=== PATIENT | female | born 1995 | race Caucasian/White ===

== ENCOUNTER → 2017-10-09 00:05 | Observation (INO) ==
[2017-10-08 21:47] LABS: Bilirubin,Urine Moderate (Negative); Blood,Urine Negative (Negative); Clarity,Urine Turbid (Clear); Color,Urine Dark Yellow (Yellow); Glucose,Urine (UA) Normal (Normal); Ketones,Urine 40 mg/dL (Negative); Leukocyte Esterase,Urine Large (Negative); Nitrite,Urine Negative (Negative); PH,Urine 6.5 pH Units (5.0-8.0); Protein,Urine 30 mg/dL (Neg-Trace); Specific Gravity,Urine 1.024 (1.010-1.025)
[2017-10-08 21:50] LABS: Bacteria,Urine Many per hpf (None-Few); Hyaline Casts,Urine Moderate per lpf (None-Few); Squamous Epithelial Cell,Urine Many per lpf (None-Few); WBC,Urine 30-50 per hpf (0-3)
[2017-10-08 21:56] LABS: Amphetamine Screen,Urine Negative ng/mL (Cutoff=1000); Barbiturate Screen,Urine Negative ng/mL (Cutoff=200); Benzodiazepines Screen,Urine Negative ng/mL (Cutoff=200); Cannabinoid Screen,Urine Negative ng/mL (Cutoff = 50); Cocaine Screen,Urine Negative ng/mL (Cutoff= 300); Opiate Screen,Urine Negative ng/mL (Cutoff=300); Phencyclidine Screen,Urine Negative ng/mL (Cutoff=25)
--- NOTE | 2017-10-08 22:35 | OB/GYN Progress Note ---
Date of Encounter: 10/08/17 Time of Encounter: 22:20 - Assessment and Plan (1) 30 weeks gestation of Current Visit: Yes Status: Acute admitted for observation (2) contractions Current Visit: Yes Status: Acute Iv fluids Discussed patient with Dr. Goodman with give terbutaline (3) Dehydration Current Visit: Yes Status: Acute Iv fluids Subjective - Subjective Principal diagnosis: dizziness, headache and abdominal pain Interval history: Patient is a 22 y/o at 30w3d presents to labor and delivery with complaints of headache, dizziness and abdominal cramping. Patient denies any urinary symptoms, nausea or vomiting. Denies LOF or VB. Patient reports +FM. Patient states she is very stressed at works and feels that could be contributing to her problems. Patient smokes 1ppd and last smoked on her way to the hospital. Patient reports she mostly drinks pop and has not had much water today. Patient reports BPs have been elevated in office in past. Antepartum ROS: loss of fluid, movement normal, no vaginal bleeding Objective - Vital Signs Vital Signs: Intake and Output 10/08/17 10/08/17 10/08/17 07:59 15:59 23:59 Other: Weight 82.3 kg Patient Weight 10/08/17 23:59 Weight 82.3 kg - Exam FHR: auscultation normal FHR comments: 135 bpm moderate variability Abdomen: Present: normal appearance, soft - Labs Labs: Abnormal lab results Urine Clarity Turbid (Clear) A 10/08/17 21:30 Urine Protein 30 mg/dL (Neg-Trace) H 10/08/17 21:30 Urine Ketones 40 mg/dL (Negative) H 10/08/17 21:30 Urine Bilirubin Moderate (Negative) H 10/08/17 21:30 Urine Urobilinogen 4.0 mg/dL (Normal) H 10/08/17 21:30 Ur Leukocyte Esterase Large (Negative) H 10/08/17 21:30 Urine Microscopic RBC 3-5 per hpf (0-3) H 10/08/17 21:30 Urine Microscopic WBC 30-50 per hpf (0-3) H 10/08/17 21:30 Ur Squamous Epith Cells Many per lpf (None-Few) H 10/08/17 21:30 Urine Bacteria Many per hpf (None-Few) H 10/08/17 21:30 Hyaline Casts Moderate per lpf (None-Few) H 10/08/17 21:30 Ur Culture Indicated? NO. (NO) A 10/08/17 21:30
[2017-10-08 22:40] LABS: Basophils % 0.2 %; Eosinophils # 0.1 K/mcL (0.0-0.6); Eosinophils % 0.6 %; Hematocrit 37.5 % (35.3-44.9); Hemoglobin 13.5 g/dL (11.5-15.4); Immature Granulocytes % 0.5 % (0-4); Lymphocytes # 2.2 K/mcL (0.6-4.6); Lymphocytes % 20.1 %; Mean Corpuscular Hemoglobin 31.5 pg (28.0-33.3); Mean Corpuscular Volume 87.4 fL (83.0-100.0); Mean Platelet Volume 11.7 fL (9.4-12.4); Monocytes # 0.5 K/mcL (0.0-1.3); Neutrophils # 7.9 K/mcL (1.6-8.9); Platelet Count 177 K/mcL (140-400); Red Blood Count 4.29 M/mcL (3.82-4.97); Red Cell Distribution Width 13.5 % (11.5-14.5); Segmented Neutrophils % 73.6 %
[2017-10-08 22:58] LABS: Alanine Aminotransferase 48 Units/L (7-52); Aspartate Amino Transferase 34 Units/L (13-39); BUN/Creatinine Ratio 13 (6-26); Blood Urea Nitrogen 6 mg/dL (6-20); Lactate Dehydrogenase 112 Units/L (140-271); Uric Acid 4.8 mg/dL (2.3-7.6); eGFR For Non-African Americans > 60 (> 60)
--- NOTE | 2017-10-08 23:53 | Discharge Summary ---
Date of Encounter: 10/08/17 Time of Encounter: 23:52 - Discharge Diagnosis (1) 30 weeks gestation of Priority: Primary Status: Acute (2) contractions Priority: Secondary Status: Acute Comments: Terbutaline sq x1 (3) Dehydration Priority: Secondary Status: Acute Comments: 1000cc IV bolus (4) UTI in Priority: Primary Status: Acute Comments: Will start macrobid Qualifiers: Trimester: third trimester Qualified Code(s): O23.43 - Unspecified infection of urinary tract in , third trimester - Discharge Medications Prescriptions: Nitrofurantoin (BID) [Macrobid] 100 mg PO BID 7 Days #14 capsule Home Medications: Nitrofurantoin (BID) [Macrobid] 100 mg PO BID 7 Days #14 capsule 10/08/17 [Rx] Vit/Iron Fumarate/FA [ Tablet] 1 each PO DAILY 10/08/17 [ History] Allergies/Adverse Reactions: 3 Allergy/AdvReac Type Severity Reaction Status Date / Time Cefadroxil [From [facility]] Allergy Hives Verified 10/08/17 21:30 Data Procedures and tests throughout hospitalization: Laboratory Tests 10/08/17 10/08/17 10/08/17 21:30 21:34 22:09 WBC 10.7 RBC 4.29 Hgb 13.5 Hct 37.5 MCV 87.4 MCH 31.5 MCHC 36.0 H RDW 13.5 Plt Count 177 MPV 11.7 Immature Gran % 0.5 Seg Neutrophils % 73.6 Lymphocytes % 20.1 Monocytes % 5.0 Eosinophils % 0.6 Basophils % 0.2 Neutrophils # 7.9 Lymphocytes # 2.2 Monocytes # 0.5 Eosinophils # 0.1 Basophils # 0.0 BUN Creatinine Est GFR ( Amer) Est GFR (Non-Af Amer) BUN/Creatinine Ratio Uric Acid AST ALT Lactate Dehydrogenase Urine Color Dark Yellow Urine Clarity Turbid A Urine pH 6.5 Ur Specific Grant 1.024 Urine Protein 30 H Urine Glucose (UA) Normal Urine Ketones 40 H Urine Blood Negative Urine Nitrite Negative Urine Bilirubin Moderate H Urine Urobilinogen 4.0 H Ur Leukocyte Esterase Large H Urine Microscopic RBC 3-5 H Urine Microscopic WBC 30-50 H Ur Squamous Epith Cells Many H Other Crystals Present Urine Bacteria Many H Hyaline Casts Moderate H Ur Culture Indicated? NO. A Urine Opiates Screen Negative Ur Barbiturates Screen Negative Ur Phencyclidine Scrn Negative Ur Amphetamines Screen Negative U Benzodiazepines Scrn Negative Urine Cocaine Screen Negative U Marijuana (THC) Screen Negative Ur Drug Screen Interp See Below 10/08/17 22:09 WBC RBC Hgb Hct MCV MCH MCHC RDW Plt Count MPV Immature Gran % Seg Neutrophils % Lymphocytes % Monocytes % Eosinophils % Basophils % Neutrophils # Lymphocytes # Monocytes # Eosinophils # Basophils # BUN 6 Creatinine 0.47 L Est GFR ( Amer) > 60 Est GFR (Non-Af Amer) > 60 BUN/Creatinine Ratio 13 Uric Acid 4.8 AST 34 ALT 48 Lactate Dehydrogenase 112 L Urine Color Urine Clarity Urine pH Ur Specific [place] Urine Protein Urine Glucose (UA) Urine Ketones Urine Blood Urine Nitrite Urine Bilirubin Urine Urobilinogen Ur Leukocyte Esterase Urine Microscopic RBC Urine Microscopic WBC Ur Squamous Epith Cells Other Crystals Urine Bacteria Hyaline Casts Ur Culture Indicated? Urine Opiates Screen Ur Barbiturates Screen Ur Phencyclidine Scrn Ur Amphetamines Screen U Benzodiazepines Scrn Urine Cocaine Screen U Marijuana (THC) Screen Ur Drug Screen Interp Labs on day of discharge: Labs from last 24 hours 10/08/17 10/08/17 10/08/17 22:09 22:09 21:34 WBC 10.7 RBC 4.29 Hgb 13.5 Hct 37.5 MCV 87.4 MCH 31.5 MCHC 36.0 H RDW 13.5 Plt Count 177 MPV 11.7 Immature Gran % 0.5 Seg Neutrophils % 73.6 Lymphocytes % 20.1 Monocytes % 5.0 Eosinophils % 0.6 Basophils % 0.2 Neutrophils # 7.9 Lymphocytes # 2.2 Monocytes # 0.5 Eosinophils # 0.1 Basophils # 0.0 BUN 6 Creatinine 0.47 L Est GFR ( Amer) > 60 Est GFR (Non-Af Amer) > 60 BUN/Creatinine Ratio 13 Uric Acid 4.8 AST 34 ALT 48 Lactate Dehydrogenase 112 L Urine Color Urine Clarity Urine pH Ur Specific [place] Urine Protein Urine Glucose (UA) Urine Ketones Urine Blood Urine Nitrite Urine Bilirubin Urine Urobilinogen Ur Leukocyte Esterase Urine Microscopic RBC Urine Microscopic WBC Ur Squamous Epith Cells Other Crystals Urine Bacteria Hyaline Casts Ur Culture Indicated? Urine Opiates Screen Negative Ur Barbiturates Screen Negative Ur Phencyclidine Scrn Negative Ur Amphetamines Screen Negative U Benzodiazepines Scrn Negative Urine Cocaine Screen Negative U Marijuana (THC) Screen Negative Ur Drug Screen Interp See Below 10/08/17 21:30 WBC RBC Hgb Hct MCV MCH MCHC RDW Plt Count MPV Immature Gran % Seg Neutrophils % Lymphocytes % Monocytes % Eosinophils % Basophils % Neutrophils # Lymphocytes # Monocytes # Eosinophils # Basophils # BUN Creatinine Est GFR ( Amer) Est GFR (Non-Af Amer) BUN/Creatinine Ratio Uric Acid AST ALT Lactate Dehydrogenase Urine Color Dark Yellow Urine Clarity Turbid A Urine pH 6.5 Ur Specific Grant 1.024 Urine Protein 30 H Urine Glucose (UA) Normal Urine Ketones 40 H Urine Blood Negative Urine Nitrite Negative Urine Bilirubin Moderate H Urine Urobilinogen 4.0 H Ur Leukocyte Esterase Large H Urine Microscopic RBC 3-5 H Urine Microscopic WBC 30-50 H Ur Squamous Epith Cells Many H Other Crystals Present Urine Bacteria Many H Hyaline Casts Moderate H Ur Culture Indicated? NO. 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 Patient denies any abdominal pain and reports headache is gone. Patient reports +FM. Time Attestation: Total time spent providing and/or coordinating discharge services: Time Spent: Less than 30 minutes - VTE Reasons for not Prescribing Prophylaxis: Treatment not Indicated - Low risk for VTE
[~2017-10-09 00:05] MED LIST: Ringers Solution, Lactated 1,000 ML IVC SCH; Terbutaline 1 MG/ML VIAL SQ ONE
== END | disposition home or self-care (01) ==
LOC: 1NENULAB
PROVIDERS: ADMIT Advanced Practice Midwife; ATTEND Advanced Practice Midwife

== ENCOUNTER → 2017-11-23 18:10 | Observation (INO) ==
[2017-11-23 16:44] LABS: Basophils % 0.2 %; Eosinophils % 0.3 %; Hemoglobin 13.8 g/dL (11.5-15.4); Immature Granulocytes % 0.4 % (0-4); Lymphocytes % 16.4 %; Mean Corpuscular HGB Conc 34.5 g/dL (31.6-35.5); Mean Corpuscular Hemoglobin 30.4 pg (28.0-33.3); Mean Corpuscular Volume 88.1 fL (83.0-100.0); Mean Platelet Volume 13.2 fL (9.4-12.4); Monocytes # 0.4 K/mcL (0.0-1.3); Monocytes % 3.3 %; Neutrophils # 9.8 K/mcL (1.6-8.9); Platelet Count 138 K/mcL (140-400); Red Blood Count 4.54 M/mcL (3.82-4.97); Red Cell Distribution Width 13.3 % (11.5-14.5); Segmented Neutrophils % 79.4 %
[2017-11-23 17:03] LABS: Alanine Aminotransferase 8 Units/L (7-52); Aspartate Amino Transferase 11 Units/L (13-39); BUN/Creatinine Ratio 12 (6-26); Blood Urea Nitrogen 7 mg/dL (6-20); Lactate Dehydrogenase 140 Units/L (140-271); Uric Acid 6.1 mg/dL (2.3-7.6); eGFR For Non-African Americans > 60 (> 60)
[2017-11-23 17:16] LABS: Amphetamine Screen,Urine Negative ng/mL (Cutoff=1000); Barbiturate Screen,Urine Negative ng/mL (Cutoff=200); Benzodiazepines Screen,Urine Negative ng/mL (Cutoff=200); Cannabinoid Screen,Urine Negative ng/mL (Cutoff = 50); Cocaine Screen,Urine Negative ng/mL (Cutoff= 300); Opiate Screen,Urine Negative ng/mL (Cutoff=300); Phencyclidine Screen,Urine Negative ng/mL (Cutoff=25)
[2017-11-23 17:27] LABS: Protein/Creatinine Ratio,Urine 0.23 mg/mg (0.00-0.20)
--- NOTE | 2017-11-23 17:56 | Discharge Summary ---
Date of Encounter: 11/23/17 Time of Encounter: 17:55 - Discharge Diagnosis (1) 37 weeks gestation of Priority: Primary Status: Acute Comments: Follow up in office as scheduled Labor precautions Discharge home (2) Elevated blood pressure affecting in third trimester, antepartum Priority: Secondary Status: Acute Comments: Preeclampsia signs and symptoms discussed and patient verbalizes understanding of when to come back - Discharge Medications Home Medications: Vit/Iron Fumarate/FA [ Tablet] 1 each PO DAILY 10/08/17 [ History] Allergies/Adverse Reactions: 3 Allergy/AdvReac Type Severity Reaction Status Date / Time Cefadroxil [From [facility]] Allergy Hives Verified 11/23/17 15:48 Data Procedures and tests throughout hospitalization: Laboratory Tests 11/23/17 11/23/17 11/23/17 15:59 15:59 16:38 WBC 12.3 H RBC 4.54 Hgb 13.8 Hct 40.0 MCV 88.1 MCH 30.4 MCHC 34.5 RDW 13.3 Plt Count 138 L MPV 13.2 H Immature Gran % 0.4 Seg Neutrophils % 79.4 Lymphocytes % 16.4 Monocytes % 3.3 Eosinophils % 0.3 Basophils % 0.2 Neutrophils # 9.8 H Lymphocytes # 2.0 Monocytes # 0.4 Eosinophils # 0.0 Basophils # 0.0 BUN 7 Creatinine 0.57 L Est GFR ( Amer) > 60 Est GFR (Non-Af Amer) > 60 BUN/Creatinine Ratio 12 Uric Acid 6.1 AST 11 L ALT 8 Lactate Dehydrogenase 140 Urine Creatinine Protein/Creatinin Ratio Urine Total Protein Urine Opiates Screen Negative Ur Barbiturates Screen Negative Ur Phencyclidine Scrn Negative Ur Amphetamines Screen Negative U Benzodiazepines Scrn Negative Urine Cocaine Screen Negative U Marijuana (THC) Screen Negative Ur Drug Screen Interp See Below 11/23/17 16:38 WBC RBC Hgb Hct MCV MCH MCHC RDW Plt Count MPV Immature Gran % Seg Neutrophils % Lymphocytes % Monocytes % Eosinophils % Basophils % Neutrophils # Lymphocytes # Monocytes # Eosinophils # Basophils # BUN Creatinine Est GFR ( Amer) Est GFR (Non-Af Amer) BUN/Creatinine Ratio Uric Acid AST ALT Lactate Dehydrogenase Urine Creatinine 101 Protein/Creatinin Ratio 0.23 H Urine Total Protein 23 H Urine Opiates Screen Ur Barbiturates Screen Ur Phencyclidine Scrn Ur Amphetamines Screen U Benzodiazepines Scrn Urine Cocaine Screen U Marijuana (THC) Screen Ur Drug Screen Interp Labs on day of discharge: Labs from last 24 hours 11/23/17 11/23/17 11/23/17 16:38 16:38 15:59 WBC RBC Hgb Hct MCV MCH MCHC RDW Plt Count MPV Immature Gran % Seg Neutrophils % Lymphocytes % Monocytes % Eosinophils % Basophils % Neutrophils # Lymphocytes # Monocytes # Eosinophils # Basophils # BUN 7 Creatinine 0.57 L Est GFR ( Amer) > 60 Est GFR (Non-Af Amer) > 60 BUN/Creatinine Ratio 12 Uric Acid 6.1 AST 11 L ALT 8 Lactate Dehydrogenase 140 Urine Creatinine 101 Protein/Creatinin Ratio 0.23 H Urine Total Protein 23 H Urine Opiates Screen Negative Ur Barbiturates Screen Negative Ur Phencyclidine Scrn Negative Ur Amphetamines Screen Negative U Benzodiazepines Scrn Negative Urine Cocaine Screen Negative U Marijuana (THC) Screen Negative Ur Drug Screen Interp See Below 11/23/17 15:59 WBC 12.3 H RBC 4.54 Hgb 13.8 Hct 40.0 MCV 88.1 MCH 30.4 MCHC 34.5 RDW 13.3 Plt Count 138 L MPV 13.2 H Immature Gran % 0.4 Seg Neutrophils % 79.4 Lymphocytes % 16.4 Monocytes % 3.3 Eosinophils % 0.3 Basophils % 0.2 Neutrophils # 9.8 H Lymphocytes # 2.0 Monocytes # 0.4 Eosinophils # 0.0 Basophils # 0.0 BUN Creatinine Est GFR ( Amer) Est GFR (Non-Af Amer) BUN/Creatinine Ratio Uric Acid AST ALT Lactate Dehydrogenase Urine Creatinine Protein/Creatinin Ratio Urine Total Protein Urine Opiates Screen Ur Barbiturates Screen Ur Phencyclidine Scrn Ur Amphetamines Screen U Benzodiazepines Scrn Urine Cocaine Screen U Marijuana (THC) Screen Ur Drug Screen Interp Date of admission: 11/23/17 15:26 Primary care physician: PCP NONE Discharging clinician: Joleen Galindo Anticipated date of discharge: 11/23/17 - Patient Status Disposition: Home, Self-Care Condition: Good Functional capacity at discharge: independent ambulation Overall status at discharge: patient is progressing back to baseline - Discharge Instructions Follow Up With: NONE,PCP [Primary Care Provider] - Joleen Galindo [Advanced Practice Nurse] - - Diet and Activity Activity: increase activity as tolerated Diet: regular diet 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 She states she had a headache this morning with blurry vision which both have now resolved. PIH labs all negative. Discussed with Dr. Goodman and agreed to send patient home with follow-up next week as scheduled. Time Attestation: Total time spent providing and/or coordinating discharge services: Time Spent: Less than 30 minutes Exam - Constitutional General appearance IM: A&O X 3 - Respiratory Respiratory exam: Present: CTAB - Cardiovascular Cardiovascular exam IM: Present: RRR, +S1, +S2 - GI/Abdominal GI/Abdominal exam IM: normal bowel sounds, no peritoneal signs - Rectal Rectal exam: deferred - Uterine Tone: Firm - Extremities Exam Extremities exam IM: Present: normal capillary refill, normal inspection, radial pulses palpable and symmetrical - Neurological Exam Neurological exam: alert, CN II-XII intact, normal gait, oriented X3, reflexes normal, no focal deficits, strengths equal and symetr throughout - VTE Reasons for not Prescribing Prophylaxis: Treatment not Indicated - Low risk for VTE
== END | disposition home or self-care (01) ==
LOC: 1NENULAB
PROVIDERS: ADMIT Advanced Practice Midwife; ATTEND Advanced Practice Midwife

== ENCOUNTER 2017-11-28 08:37 | Inpatient (IN) ==
[~2017-11-28 08:37] MED LIST changes: +*HR* FentaNYL (PF) 100 MCG/2 ML VIAL ONE; +*HR* Nalbuphine 10 MG/ML AMPUL IVP PRN; +Bupivacaine-MPF 0.25% 10 ML VIAL ONE; +Epidural Premix (fent/bupiv) 110 ML EP ONE; +Famotidine 20 MG/2 ML VIAL IVP PRN; +Lidocaine -MPF 1% 5 ML AMPUL ONE; +Lidocaine 1% 20 ML MDV INFILT PRN; +Metoclopramide 10 MG/2 ML VIAL IVP PRN; +Naloxone 0.4 MG/ML INJ IVP PRN; +Ondansetron 4 MG/2 ML VIAL IVP PRN; +Oxytocin 20 units/ LR 1000 mL 20 UNIT/1,000 ML BAG IVC ONE; -Terbutaline 1 MG/ML VIAL SQ ONE
[2017-11-28 08:39] LABS: Alanine Aminotransferase 9 Units/L (7-52); Aspartate Amino Transferase 13 Units/L (13-39); BUN/Creatinine Ratio 16 (6-26); Blood Urea Nitrogen 11 mg/dL (6-20); Lactate Dehydrogenase 157 Units/L (140-271); Uric Acid 6.7 mg/dL (2.3-7.6); eGFR For Non-African Americans > 60 (> 60)
[2017-11-28] MEDS ORDERED: *HR* FentaNYL (PF) 100 MCG/2 ML VIAL EP ONE (08:44)
[2017-11-28] MEDS ORDERED: EPHEDrine 50 MG/ML VIAL IVP PRN (08:44)
[2017-11-28] MEDS ORDERED: Bupivacaine-MPF 0.25% 10 ML VIAL EP ONE (08:44)
[2017-11-28] MEDS ORDERED: Epidural Premix (fent/bupiv) 110 ML EP SCH (08:45)
--- NOTE | 2017-11-28 08:48 | Anesthesia Evaluation PreOp ---
Date of Encounter: 11/28/17 Time of Encounter: 08:46 - Past History Planned Operation: carole Cardiac History: Denies any Significant Hx Pulmonary History: Denies Any Significant HX MUSIC COORDINATOR History: Denies Any Significant HX Other Medical History: Denies Any Significant HX Anesthesia History: No Prior Anesthetic Complications : Yes () Alcohol Use: none Drug use: none Medications and Allergies Vit/Iron Fumarate/FA [ Tablet] 1 each PO DAILY 10/08/17 [ History] 3 Allergy/AdvReac Type Severity Reaction Status Date / Time Cefadroxil [From [facility]] Allergy Hives Verified 11/23/17 15:48 - Meds/Allergy Pre-op Review Medications Reviewed: Yes Allergies Reviewed: Yes Beta Blockers on Current Med List: No Anesthesia Results - Labs 11/28/17 07:50 Anesthesia Exam O2 Sat Height 1.57 m Weight 81.6 kg bp 172/87 Height: 62 Weight: 81 - HEENT Pupil (Motor): Pupils equal Mallampati: II Teeth: Normal Oral Opening: Greater than 3 - MUSIC COORDINATOR LOC: Oriented MUSIC COORDINATOR Motor: Normal RUE, Normal LUE, Normal RLE, Normal LLE, Normal Face MUSIC COORDINATOR Sensory: Normal: RUE, LUE, RLE, LLE, Face - Cardiac Rhythm: Regular Murmur: None JVD: No Carotid Bruit: No - Pulmonary Breath Sounds: bilateral Clear Respiratory Effort: Symmetrical Anesthesia Assess/Plan ASA Score: 2 Modified [place] Scale for Level of Consciousness: Cooperative, oriented, and tranquil Anesthetic Plan: Regional Monitoring Plan: Standard Monitors
--- NOTE | 2017-11-28 08:49 | Anesthesia Procedures ---
Date of Encounter: 11/28/17 Time of Encounter: 08:48 Procedures: Anesthesia - Epidural/Spinal Patient ID/Chart reviewed: Yes Patient examined: Yes OB Eval: : 1 OB Eval: Hx Para: 0 OB Eval: Dilated at (cm): 6 OB Eval: Contractions: Non-stressed pattern Consent Obtained: Yes Supplemental Oxygen: None/Room Air Site Prep: Aseptic Technique Patient position: upright Local Anesthetic: Lidocaine 1% Amount of Local Anesthetic used: 3 Touhy Needle Gauge: 18 Touhy Needle Depth (cm): 5 Catheter Depth at Skin (cm): 12 Test Dose (1.5% Lido + Epi): Volume given (mls): 3 Test Dose Result: Negative Loading Dose: 0.25% Marcaine (mls): 5 Loading Dose: Fentanyl (mcg): 100 Loading Dose Administered: Thru Touhy Needle Infusion Med: 0.125% Bupivacaine w/ 2 mcg/ml Fentanyl Infusion Rate (mls/hr): [address]: Tegaderm Interspace Used: L3-L4 Loss of Resistance (RAMY): Yes Blood: No CSF: No Paresthesia: No Spinal Needle Gauge: 24
[2017-11-28 09:04] LABS: Basophils % 0.3 %; Eosinophils # 0.1 K/mcL (0.0-0.6); Eosinophils % 0.4 %; Hematocrit 42.5 % (35.3-44.9); Hemoglobin 14.8 g/dL (11.5-15.4); Immature Granulocytes % 0.6 % (0-4); Lymphocytes % 19.5 %; Mean Corpuscular HGB Conc 34.8 g/dL (31.6-35.5); Mean Platelet Volume 12.7 fL (9.4-12.4); Monocytes # 0.5 K/mcL (0.0-1.3); Monocytes % 3.3 %; Neutrophils # 11.8 K/mcL (1.6-8.9); Platelet Count 169 K/mcL (140-400); Red Blood Count 4.94 M/mcL (3.82-4.97); Segmented Neutrophils % 75.9 %
[2017-11-28 09:41] LABS: Amphetamine Screen,Urine Negative ng/mL (Cutoff=1000); Barbiturate Screen,Urine Negative ng/mL (Cutoff=200)
[2017-11-28 09:43] LABS: Benzodiazepines Screen,Urine Negative ng/mL (Cutoff=300); Cannabinoid Screen,Urine Negative ng/mL (Cutoff = 50); Cocaine Screen,Urine Negative ng/mL (Cutoff= 300); Opiate Screen,Urine Negative ng/mL (Cutoff=300); Phencyclidine Screen,Urine Negative ng/mL (Cutoff=25)
--- NOTE | 2017-11-28 10:00 | OB/GYN History & Physical ---
Date of Encounter: 11/28/17 Time of Encounter: 09:50 Assessment and Plan (1) Rupture of membranes with clear amniotic fluid Current visit: Yes Status: Acute Admit for expected management. (2) 37 weeks gestation of Current visit: No Status: Acute Resting comfortably with epidural. White plaques adjacent to clitoris noted during sena placement. HSV swab pending. Anticipate pending HSV result. Of note the white plaques were easily removed with the swab but the pt does report tenderness in this area. History of Present Illness Chief complaint: ROM HPI: Ms. Ocampo is a 22 year old female that presented at 37w5d after ROM of clear fluid at 0530 with contractions. Denies VB. Reports good FM. EFW at 36w was 6lbs (57%). O Positive GBS Negative Rubella immune Varicella immune Syphillis, HIV, Hep B Nonreactive GC/CT negative 1hr GTT 170 3hr GTT 185-125-107 Past Med Surg Social Fam HX - Past Medical History Medical history: no medical history Psychiatric history: anxiety - Past Surgical History Surgical History: no surgical history - Social History Smoking Status: Never smoker Smokeless Tobacco Status: No Alcohol use: none Drug use: none - Family History Mother Family Member Ethnicity: Non- Living Status: Still Living Hx Family Cardiac Disorders: No Hx Family Respiratory Disorders: No Hx Family Cancer: No Hx Family GI Disorders: No Hx Family Genitourinary Disorders: No Hx Family Endocrine Disorder: No Hx Family Musculoskeletal Disorders: No Hx Family Neuromuscular Disorders: No Hx Family Neurologic Disorders: No Hx Family HEENT Disorders: No Hx Family Autoimmune Disorders: No Hx Family Reproductive Disorders: No Hx Family Psychosocial Disorders: No Hx Family Medical Disorders: No Obstetrical History - Pregnancies : 1 Para: 0 Term: 0 : 0 Ab's: 0 Livin Medications and Allergies Vit/Iron Fumarate/FA [ Tablet] 1 each PO DAILY 10/08/17 [ History] 3 Allergy/AdvReac Type Severity Reaction Status Date / Time Cefadroxil [From [facility] [place]] Allergy Hives Verified 11/23/17 15:48 Review of System OB All systems PM: reviewed and no additional remarkable complaints except as stated Exam - Vital Signs Vital signs: Initial Vital Signs Temp Pulse Resp BP Pulse Ox 970.2 F H 76 22 145/64 99 11/28/17 09:06 11/28/17 09:06 11/28/17 09:06 11/28/17 09:06 11/28/17 09:06 - Constitutional Constitutional: well developed, well nourished, no acute distress, average body habitus - Lungs Respiratory exam: CTAB - Cardiovascular Cardiovascular exam: RRR, +S1, +S2 - Abdomen Abdomen: Present: bowel sounds normal, gravid, non tender - Extremities Extremities exam: normal inspection, pedal edema (1+) Deep Tendon Reflex Grade: 2+ Normal - Cervix Dilation: 6 Effacement: 100 Station: -2 Results Result Diagrams: 11/28/17 07:50 11/28/17 07:50 Abnormal lab results WBC 15.5 K/mcL (4.3-11.1) H 11/28/17 07:50 MPV 12.7 fL (9.4-12.4) H 11/28/17 07:50 Neutrophils # 11.8 K/mcL (1.6-8.9) H 11/28/17 07:50 All other labs normal. - VTE Reasons for not Prescribing Prophylaxis: Treatment not Indicated - Low risk for VTE
[2017-11-28 11:41] LABS: HSV 1 DNA Not Detected (Not Detect); HSV 2 DNA Not Detected (Not Detect)
[2017-11-28 12:00] LABS: Protein/Creatinine Ratio,Urine 0.24 mg/mg (0.00-0.20)
--- NOTE | 2017-11-28 13:07 | OB/GYN Procedure Note ---
Delivery - Delivery Date: 11/28/17 Provider: Patria Encarnacion Intrapartum events: none Delivery induction: none Delivery monitor: external FHT, external uterine Anesthesia: epidural Quantitated Blood Loss: 150 - (s) Infant A Delivery Date: 11/28/17 Infant Delivery Time: 12:11 Presentation: vertex Position: CANDELARIO Route of delivery: Gender: Male Viability: Viable Pounds: 5 Ounces: 8 Weight Gram: 2.505 kg at 1 minute: 8 at 5 mins: 9 Shoulder Dystocia: not encountered Specimens collected: cord blood Cord: nuchal cord, 3 umbilical vessels, nuchal reduced - Repair Episiotomy: none Laceration Description: Perineal - 2nd Degree, Labial - Complications Delivery complications: none Delivery comments: Pt presented in active labor following SROM and progressed normally to . A loose nuchal was easily reduced following delivery of the head. After pulsations ceased the cord was clamped and cut and the placenta delivered spontaneous and intact. Baby boy "Michael" weighing 5lbs 8 oz had apgars 8 at one minute and 9 at five minutes. Bilateral labial lacerations were repaired with 4- 0 monocryl and a second degree perineal laceration was repaired with 2-0 monocryl. EBL 150ml. Mother and baby stable in kangaroo care following procedure. - Disposition Mom disposition: stable in LDR disposition: stable in LDR
[2017-11-28] MEDS ORDERED: Oxytocin 20 units/ LR 1000 mL 20 UNIT/1,000 ML BAG IVC ONE (13:52)
[2017-11-28] MEDS ORDERED: NIFEdipine 10 MG CAPSULE PO ONE (14:03)
[2017-11-28] MEDS ORDERED: Acetaminophen 325 MG TABLET PO PRN (14:59)
[2017-11-28] MEDS ORDERED: Oxytocin 20 units/ LR 1000 mL 20 UNIT/1,000 ML BAG IVC SCH (14:59)
[2017-11-28] MEDS ORDERED: Measles/Mumps/Rubella Vacc 0.5 ML VIAL SQ PRN (14:59)
[2017-11-28] MEDS ORDERED: Benzocaine/Menthol 56 GM AEROSOL SPRAY TP PRN (14:59)
[2017-11-28] MEDS ORDERED: Lanolin 28 GM TUBE TP PRN (14:59)
--- NOTE | 2017-11-28 15:09 | OB/GYN Procedure Note ---
Delivery - Delivery Date: 11/28/17 Provider: Patria Encarnacion Intrapartum events: none Delivery induction: none Delivery monitor: external FHT, external uterine Anesthesia: epidural Quantitated Blood Loss: 250 - (s) Infant A Delivery Date: 11/28/17 Infant Delivery Time: 12:11 Presentation: vertex Position: CANDELARIO Route of delivery: Gender: Male Viability: Viable Pounds: 5 Ounces: 8 Weight Gram: 2.505 kg at 1 minute: 8 at 5 mins: 9 Shoulder Dystocia: not encountered Specimens collected: cord blood Placenta: spontaneous, uterine exploration (small amount membranes removed manually) Cord: nuchal cord, 3 umbilical vessels, nuchal reduced - Repair Episiotomy: none Laceration Description: Perineal - 2nd Degree, Labial - Complications Delivery complications: none (atony noted with steady lochia following delivery of placenta, methergine given.), uterine atony Delivery comments: Pt presented in active labor and progressed well to of viable male "Tonio " weighing 7lbs with apgars 8 at one minute and 9 at five minutes. After pulsations ceased the cord was clamped and cut and the placenta delivered spontaneous and intact. Uterine atony with constant flow of lochia noted. Fundal massage initiated. Moderate flow of lochia and poor uterine tone continued. Methergine given after BP assessment. Uterine exploration reveals some trailing membrane which is removed. No placental fragments. Placenta evaluated and found to be intact. Fundus then firm. A first degree laceration was repaired with 2-0 monocryl. EBL 250ml. Mother and baby stable in kangaroo care following procedure. Dr. Quinones and I were both gowned and gloved and completed this procedure together. - Disposition Mom disposition: stable in LDR disposition: stable in LDR
[2017-11-29 06:23] LABS: Basophils % 0.3 %; Eosinophils % 0.3 %; Hematocrit 36.9 % (35.3-44.9); Immature Granulocytes % 0.4 % (0-4); Lymphocytes # 3.7 K/mcL (0.6-4.6); Lymphocytes % 27.5 %; Mean Corpuscular HGB Conc 33.9 g/dL (31.6-35.5); Mean Corpuscular Volume 88.7 fL (83.0-100.0); Mean Platelet Volume 12.6 fL (9.4-12.4); Monocytes # 0.6 K/mcL (0.0-1.3); Monocytes % 4.4 %; Platelet Count 129 K/mcL (140-400); Red Blood Count 4.16 M/mcL (3.82-4.97); Red Cell Distribution Width 13.8 % (11.5-14.5); Segmented Neutrophils % 67.1 %
[2017-11-29 06:29] LABS: Hemoglobin 12.5 g/dL (11.5-15.4); Neutrophils # 9.1 K/mcL (1.6-8.9)
[2017-11-29 06:47] LABS: Platelet Estimate Normal (Normal); Reactive Lymphocytes Present (Not Present)
--- NOTE | 2017-11-29 08:59 | Discharge Summary ---
Date of Encounter: 11/29/17 Time of Encounter: 08:57 - Discharge Diagnosis (1) Vaginal delivery Priority: Primary Status: Acute Comments: S/P vaginal delivery day 1 Pain is well controlled lochia is light and without clots Tolerating regular diet. Voiding without difficulty and passing flatus VSS Bottle feeding Discharge home today - Discharge Medications Prescriptions: Docusate [Colace] 100 mg PO BID PRN #30 capsule PRN Reason: Constipation Ferrous Sulfate 325 mg PO DAILY #90 tablet Ibuprofen [Ibu] 600 mg PO Q6H PRN #30 tablet PRN Reason: cramping Home Medications: Acetaminophen [Tylenol] 650 mg PO Q6HR PRN tablet 11/29/17 [Rx] Benzocaine/Menthol Tr[place] [Dermoplast [place]] 1 appl TP QID PRN aerosol 11/29/17 [Rx] Docusate [Colace] 100 mg PO BID PRN #30 capsule 11/29/17 [Rx] Ferrous Sulfate 325 mg PO DAILY #90 tablet 11/29/17 [Rx] Ibuprofen [Ibu] 600 mg PO Q6H PRN #30 tablet 11/29/17 [Rx] Vit/FA 1 each PO DAILY tablet 11/29/17 [Rx] Allergies/Adverse Reactions: 3 Allergy/AdvReac Type Severity Reaction Status Date / Time Cefadroxil [From [facility] [place] Allergy Hives Verified 11/23/17 15:48 Data Procedures and tests throughout hospitalization: Laboratory Tests 11/28/17 11/28/17 11/28/17 07:50 07:50 07:50 WBC 15.5 H RBC 4.94 Hgb 14.8 Hct 42.5 MCV 86.0 MCH 30.0 MCHC 34.8 RDW 14.0 Plt Count 169 MPV 12.7 H Immature Gran % 0.6 Seg Neutrophils % 75.9 Lymphocytes % 19.5 Monocytes % 3.3 Eosinophils % 0.4 Basophils % 0.3 Neutrophils # 11.8 H Lymphocytes # 3.0 Monocytes # 0.5 Eosinophils # 0.1 Basophils # 0.0 Reactive Lymphocytes Platelet Estimate BUN 11 Creatinine 0.69 Est GFR ( Amer) > 60 Est GFR (Non-Af Amer) > 60 BUN/Creatinine Ratio 16 Uric Acid 6.7 AST 13 ALT 9 Lactate Dehydrogenase 157 Urine Creatinine Protein/Creatinin Ratio Urine Total Protein Urine Opiates Screen Negative Ur Barbiturates Screen Negative Ur Phencyclidine Scrn Negative Ur Amphetamines Screen Negative U Benzodiazepines Scrn Negative Urine Cocaine Screen Negative U Marijuana (THC) Screen Negative Ur Drug Screen Interp See Below Hep Bs Antigen Herpes Simplex Source HSV I HSV II 11/28/17 11/28/17 11/28/17 07:50 07:50 10:29 WBC RBC Hgb Hct MCV MCH MCHC RDW Plt Count MPV Immature Gran % Seg Neutrophils % Lymphocytes % Monocytes % Eosinophils % Basophils % Neutrophils # Lymphocytes # Monocytes # Eosinophils # Basophils # Reactive Lymphocytes Platelet Estimate BUN Creatinine Est GFR ( Amer) Est GFR (Non-Af Amer) BUN/Creatinine Ratio Uric Acid AST ALT Lactate Dehydrogenase Urine Creatinine 92 Protein/Creatinin Ratio 0.24 H Urine Total Protein 22 H Urine Opiates Screen Ur Barbiturates Screen Ur Phencyclidine Scrn Ur Amphetamines Screen U Benzodiazepines Scrn Urine Cocaine Screen U Marijuana (THC) Screen Ur Drug Screen Interp Hep Bs Antigen Nonreactive Herpes Simplex Source vulva HSV I Not Detected HSV II Not Detected 11/29/17 06:00 WBC 13.5 H RBC 4.16 Hgb 12.5 D Hct 36.9 MCV 88.7 MCH 30.0 MCHC 33.9 RDW 13.8 Plt Count 129 L MPV 12.6 H Immature Gran % 0.4 Seg Neutrophils % 67.1 Lymphocytes % 27.5 Monocytes % 4.4 Eosinophils % 0.3 Basophils % 0.3 Neutrophils # 9.1 H Lymphocytes # 3.7 Monocytes # 0.6 Eosinophils # 0.0 Basophils # 0.0 Reactive Lymphocytes Present A Platelet Estimate Normal BUN Creatinine Est GFR ( Amer) Est GFR (Non-Af Amer) BUN/Creatinine Ratio Uric Acid AST ALT Lactate Dehydrogenase Urine Creatinine Protein/Creatinin Ratio Urine Total Protein Urine Opiates Screen Ur Barbiturates Screen Ur Phencyclidine Scrn Ur Amphetamines Screen U Benzodiazepines Scrn Urine Cocaine Screen U Marijuana (THC) Screen Ur Drug Screen Interp Hep Bs Antigen Herpes Simplex Source HSV I HSV II Labs on day of discharge: Labs from last 24 hours 11/29/17 11/28/17 11/28/17 06:00 10:29 07:50 WBC 13.5 H RBC 4.16 Hgb 12.5 D Hct 36.9 MCV 88.7 MCH 30.0 MCHC 33.9 RDW 13.8 Plt Count 129 L MPV 12.6 H Immature Gran % 0.4 Seg Neutrophils % 67.1 Lymphocytes % 27.5 Monocytes % 4.4 Eosinophils % 0.3 Basophils % 0.3 Neutrophils # 9.1 H Lymphocytes # 3.7 Monocytes # 0.6 Eosinophils # 0.0 Basophils # 0.0 Reactive Lymphocytes Present A Platelet Estimate Normal Urine Creatinine 92 Protein/Creatinin Ratio 0.24 H Urine Total Protein 22 H Urine Opiates Screen Ur Barbiturates Screen Ur Phencyclidine Scrn Ur Amphetamines Screen U Benzodiazepines Scrn Urine Cocaine Screen U Marijuana (THC) Screen Hep Bs Antigen Herpes Simplex Source vulva HSV I Not Detected HSV II Not Detected 11/28/17 11/28/17 11/28/17 07:50 07:50 07:50 WBC 15.5 H RBC 4.94 Hgb 14.8 Hct 42.5 MCV 86.0 MCH 30.0 MCHC 34.8 RDW 14.0 Plt Count 169 MPV 12.7 H Immature Gran % 0.6 Seg Neutrophils % 75.9 Lymphocytes % 19.5 Monocytes % 3.3 Eosinophils % 0.4 Basophils % 0.3 Neutrophils # 11.8 H Lymphocytes # 3.0 Monocytes # 0.5 Eosinophils # 0.1 Basophils # 0.0 Reactive Lymphocytes Platelet Estimate Urine Creatinine Protein/Creatinin Ratio Urine Total Protein Urine Opiates Screen Negative Ur Barbiturates Screen Negative Ur Phencyclidine Scrn Negative Ur Amphetamines Screen Negative U Benzodiazepines Scrn Negative Urine Cocaine Screen Negative U Marijuana (THC) Screen Negative Hep Bs Antigen Nonreactive Herpes Simplex Source HSV I HSV II Date of admission: 11/28/17 08:37 Primary care physician: PCP NONE Consults: 11/28/17 14:59 Consult to Move Coordinator [CONS] Routine Comment: Vaginal delivery, consult needed Discharging clinician: Joleen Jean Anticipated date of discharge: 11/29/17 - Patient Status Disposition: Home, Self-Care Condition: Good Functional capacity at discharge: independent ambulation Overall status at discharge: patient is progressing back to baseline - Discharge Instructions Follow Up With: NONE,PCP [Primary Care Provider] - Patria Encarnacion CNM [Non-Partnered Physician] - - Diet and Activity Activity: increase activity as tolerated Diet: regular diet Hospital Course Reason for admission: rupture of membranes, IUP at term Delivery: Episiotomy: none Laceration: 2nd degree, other Other procedures: none complications: none Discharge diagnosis: IUP at term delivered baby: male Time Attestation: Total time spent providing and/or coordinating discharge services: Time Spent: Less than 30 minutes Exam - Constitutional Vitals: Temp Pulse Resp BP Pulse Ox 97.8 F 67 14 128/81 98 11/29/17 03:36 11/29/17 03:36 11/29/17 03:36 11/29/17 03:36 11/29/17 03:36 General appearance IM: cooperative, A&O X 3, pleasant - Respiratory Respiratory exam: Present: CTAB - Cardiovascular Cardiovascular exam IM: Present: RRR, +S1, +S2 - GI/Abdominal GI/Abdominal exam IM: normal bowel sounds, soft - Rectal Rectal exam: deferred - Uterine Tone: Firm Uterus Position: At Umbilicus, Midline - Extremities Exam Extremities exam IM: Present: normal capillary refill, normal inspection, radial pulses palpable and symmetrical - Neurological Exam Neurological exam: alert, oriented X3
[2017-11-29] MEDS ORDERED: Prenatal Vit/FA 1 EACH TABLET PO SCH (09:00)
[2017-11-29 09:19] VITALS: BP 129/85
== END 2017-11-29 15:59 | disposition home or self-care (01) | DRG 807 ==
LOC: 1NENULAB → 1NENUOBS 14:59
PROVIDERS: ADMIT Registered Nurse; ATTEND Registered Nurse

== ENCOUNTER 2017-12-30 10:54 | Observation (INO) ==
[2017-12-30] MEDS ORDERED: 0.9 % Sodium Chloride 1,000 ML IVC ONE ×3 (11:26→13:56)
[2017-12-30 11:39] LABS: Bilirubin,Urine Moderate (Negative); Blood,Urine Large (Negative); Clarity,Urine Cloudy (Clear); Color,Urine Dark Yellow (Yellow); Glucose,Urine (UA) Normal (Normal); Ketones,Urine Trace mg/dL (Negative); Leukocyte Esterase,Urine Moderate (Negative); Nitrite,Urine Negative (Negative); Protein,Urine 100 mg/dL (Neg-Trace); Specific Gravity,Urine 1.026 (1.010-1.025); Urobilinogen,Urine Normal (Normal)
[2017-12-30 11:42] LABS: Bacteria,Urine Many per hpf (None-Few); Squamous Epithelial Cell,Urine Many per lpf (None-Few); WBC,Urine TNTC per hpf (0-3)
[2017-12-30 12:04] LABS: Basophils % 0.3 %; Hematocrit 40.8 % (35.3-44.9); Hemoglobin 14.1 g/dL (11.5-15.4); Immature Granulocytes % 0.4 % (0-4); Lymphocytes # 1.2 K/mcL (0.6-4.6); Lymphocytes % 12.4 %; Mean Corpuscular HGB Conc 34.6 g/dL (31.6-35.5); Mean Corpuscular Hemoglobin 29.7 pg (28.0-33.3); Mean Corpuscular Volume 86.1 fL (83.0-100.0); Mean Platelet Volume 10.6 fL (9.4-12.4); Monocytes # 0.5 K/mcL (0.0-1.3); Monocytes % 5.4 %; Neutrophils # 7.9 K/mcL (1.6-8.9); Platelet Count 159 K/mcL (140-400); Red Blood Count 4.74 M/mcL (3.82-4.97); Red Cell Distribution Width 13.1 % (11.5-14.5); Segmented Neutrophils % 81.5 %
[2017-12-30 12:09] LABS: Amphetamine Screen,Urine Positive ng/mL (Cutoff=1000); Barbiturate Screen,Urine Negative ng/mL (Cutoff=200); Benzodiazepines Screen,Urine Negative ng/mL (Cutoff=200); Cannabinoid Screen,Urine Positive ng/mL (Cutoff = 50); Cocaine Screen,Urine Negative ng/mL (Cutoff= 300); Opiate Screen,Urine Negative ng/mL (Cutoff=300); Phencyclidine Screen,Urine Negative ng/mL (Cutoff=25)
[2017-12-30 12:18] LABS: Acetaminophen < 10 mcg/mL (10-20); Alanine Aminotransferase 19 Units/L (7-52); Albumin/Globulin Ratio 1.4 (1.1-2.2); Alkaline Phosphatase 95 Units/L (34-104); Aspartate Amino Transferase 22 Units/L (13-39); BUN/Creatinine Ratio 10 (6-26); Bilirubin,Direct 0.1 mg/dL (0.0-0.2); Bilirubin,Indirect 0.2 mg/dL (0.0-1.2); Bilirubin,Total 0.3 mg/dL (0.3-1.0); Blood Urea Nitrogen 10 mg/dL (6-20); Carbon Dioxide 23 mEq/L (23-29); Chloride 104 mEq/L (98-107); Creatine Kinase 254 Units/L (30-223); Ethanol < 10 mg/dL (Less than 10); Globulin 2.9 g/dL (2.4-3.5); Glucose 89 mg/dL (70-105); Osmolality,Calculated 285 (280-300); Potassium 3.9 mEq/L (3.5-5.1); Salicylate < 2.5 mg/dL (15.0-30.0); Sodium 138 mEq/L (136-145); Total Protein 6.9 g/dL (6.4-8.9); eGFR For Non-African Americans > 60 (> 60)
[2017-12-30 12:19] LABS: Troponin I < 0.03 ng/mL (< 0.04)
[2017-12-30 12:31] LABS: Thyroid Stimulating Hormone 0.303 mcIU/mL (0.340-5.600)
[2017-12-30] MEDS ORDERED: cefTRIAXone 1,000 MG in Water for inj. (sterile) 20 ML 10 ML IVP STA (12:53)
[2017-12-30] MEDS ORDERED: Tdap (Boostrix) Vaccine 0.5 ML SYRINGE IM ONE (12:54)
--- NOTE | 2017-12-30 13:14 | Emergency Department Note ---
Disposition Clinical Impression: Post depression, Suicidal ideation, Tachycardia Cellulitis Qualifiers: Site of cellulitis: neck Qualified Code(s): L03.221 - Cellulitis of neck UTI (urinary tract infection) Qualifiers: Urinary tract infection type: acute cystitis Hematuria presence: with hematuria Qualified Code(s): N30.01 - Acute cystitis with hematuria Disposition: Admitted As Inpatient Condition: Good Psych HPI - General Chief Complaint: ED Psychiatric Symptoms Stated Complaint: " depression" Time Seen by Provider: 12/30/17 11:10 Source: patient Mode of arrival: ambulatory Limitations: no limitations Nursing Notes Reviewed: Yes Vital Signs Reviewed: Yes - History of Present Illness HPI Narrative: No significant past medical history presenting for for concerns for depression. Patient had her baby at the beginning of November and has since been having worsening thoughts of suicidal ideation. She has had hallucinations including seeing her mom when she is not there as well as hearing voices people always being in her house. The patient has had thoughts of suicide which include cutting on her left arm. Superficial in nature. Last tetanus is unknown. The patient does have a fever as well as tachycardia. She complains of some burning with urination but no other symptoms. She does have a small 1 cm area of erythema to the right neck which she says she has been picking out a lot. It [id number] her. It does not extend to the mastoid or the submandibular glands in there is no fluctuance. It she does not have any decreased range of motion of her neck. She has no pain with neck movements. She has no difficulty swallowing. She has had blurry vision on several occasions while she is standing like trying to do the dishes. She gets lightheaded with this and does sit down with symptom improvement. No cough abdomen is soft and nontender to palpation she has no difficulty with eating but has had a decreased appetite secondary to all of her symptoms. She has no other symptoms to further explain the fever. No other skin findings. Patient will undergo further evaluation for fever as well as depression. - Related Data Home Medications Medication Instructions Recorded Confirmed Citalopram Hydrobromide 20 mg PO DAILY 12/30/17 12/30/17 [Citalopram HBr] HydrOXYzine 10 mg PO Q6H PRN 12/30/17 12/30/17 Previous Rx's Medication Instructions Recorded RX: Acetaminophen [Tylenol] 650 mg PO Q6HR PRN tablet 11/29/17 Allergies Allergy/AdvReac Type Severity Reaction Status Date / Time Cefadroxil [From [facility]] Allergy Hives Verified 12/30/17 11:02 Review of Systems: CONSTITUTIONAL: No weight loss, fever, chills, weakness or fatigue. HEENT: Eyes: Intermittent blurry vision while standing and improves with rest. Ears, Nose, Throat: No hearing loss, difficulty talking or unable to swallow. SKIN: No rash or itching. CARDIOVASCULAR: No chest pain, chest pressure or chest discomfort. No palpitations or edema. RESPIRATORY: No shortness of breath, cough or sputum. GASTROINTESTINAL: Decreased appetite without abdominal pain or nausea or vomiting or changes in bowel movements. GENITOURINARY: No burning on urination or hematuria. NEUROLOGICAL: Occasional dizziness with standing. No headache, syncope, paralysis, ataxia, numbness or tingling in the extremities. No change in bowel or bladder control. MUSCULOSKELETAL: No muscle pain, back pain, joint pain or stiffness. Psych: Depression with associated visual and auditory hallucinations. Past Medical History - Past Medical History Medical history: Reports: no medical history Surgical history: Reports: no surgical history Psychiatric history: Reports: anxiety - Social History Smoking Status: Current every day smoker Smokeless Tobacco Status: No Alcohol use: Reports: none Drug use: Reports: none Physical Exam - General Limitations: no limitations General appearance: alert, in no apparent distress - Head Head exam: atraumatic, normocephalic - Eye Eye exam: Present: normal appearance, PERRL, EOMI. Absent: scleral icterus, conjunctival injection - ENT ENT exam: normal exam, normal oropharynx - Neck Neck exam: Present: normal inspection, full ROM, trachea midline. Absent: tenderness - Chest Chest inspection: Present: normal inspection - Respiratory Respiratory exam: Present: normal lung sounds bilaterally. Absent: respiratory distress, wheezes - Cardiovascular Cardiovascular exam: Present: normal rhythm, tachycardia - Abdominal Exam Abdominal exam: Present: soft, Non-Tender. Absent: tenderness, distention, guarding, rebound - Extremities Exam Extremities exam: Present: normal inspection, other (No edema). Absent: tenderness - Back Exam Back exam: Present: normal inspection, full ROM. Absent: tenderness, CVA ten derness (R), CVA tenderness (L) - Neurological Exam Neurological exam: Present: alert, oriented X3, CN II-XII intact, normal gait. Absent: motor sensory deficit - Psychiatric Psychiatric exam: Present: flat affect, suicidal ideation - Skin Skin exam: Present: other (Patient with mild cellulitic lesion to the posterior aspect of the neck without any signs of intrusion or abscess. Multiple abrasions to the left arm from self cutting.) Course - Reevaluation(s) Reevaluation #1: Urinalysis screen positive for amphetamines as well as marijuana. Patient denies recreational drug use. Takes Atarax. Patient will be treated for her urinary tract infection. There is no leukocytosis. Repeat vital signs will be obtained and condition continued to be monitored. Reevaluation #2: Patient with a splint tachycardia. Her TSH was slightly low. Thyroid studies as well as a random cortisol were added. Patient is not in thyroid storm. Patient does smoke marijuana. 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 She states last use was yesterday. Concern for poss ible drug abuse versus organic pathology. At this time she has received 3 L of fluid without improvement in her overall status. She is having active hallucinations and anxiety. Patient will be admitted for further evaluation. I did discuss case with 1A or unable to see her with her heart rate greater than 130. Discussed with the hospitalist. Patient accepted for admission. - Consultations Consultation #1: Discussed with TRACK REPAIR WORKER. Protein in the urine is likely related to the amount of blood. No history of preeclampsia throughout . Continue to monitor however patient will likely need inpatient psychiatric admission. Vital Signs Temperature 101.0 F H 12/30/17 11:01 Pulse Rate 128 12/30/17 11:01 Respiratory Rate 16 12/30/17 11:01 Blood Pressure 138/90 12/30/17 11:01 O2 Sat by Pulse Oximetry 99 12/30/17 11:01 Temperature 97.9 F 12/30/17 21:57 Pulse Rate 106 12/30/17 21:57 Respiratory Rate 22 12/30/17 21:57 Blood Pressure 109/66 12/30/17 21:57 O2 Sat by Pulse Oximetry 97 12/30/17 21:57 Oxygen Delivery Oxygen Delivery Room Air Psych - Lab Data Result diagrams: 12/30/17 11:39 12/30/17 11:39 Lab Results 11/11/18 11/11/18 11/11/18 Range/Units 11:08 11:08 11:08 WBC (4.3-11.1) K/mcL RBC (3.82-4.97) M/mcL Hgb (11.5-15.4) g/dL Hct (35.3-44.9) % MCV (83.0-100.0) fL MCH (28.0-33.3) pg MCHC (31.6-35.5) g/dL RDW (11.5-14.5) % Plt Count (140-400) K/mcL MPV (9.4-12.4) fL Immature Gran % (0-4) % Seg Neutrophils % % Lymphocytes % % Monocytes % % Eosinophils % % Basophils % % Neutrophils # (1.6-8.9) K/mcL Lymphocytes # (0.6-4.6) K/mcL Monocytes # (0.0-1.3) K/mcL Eosinophils # (0.0-0.6) K/mcL Basophils # (0.0-0.2) K/mcL Sodium (136-145) mEq/L Potassium (3.5-5.1) mEq/L Chloride (98-107) mEq/L Carbon Dioxide (23-29) mEq/L BUN (6-20) mg/dL Creatinine (0.60-1.20) mg/dL Est GFR ( Amer) (> 60) Est GFR (Non-Af Amer) (> 60) BUN/Creatinine Ratio (6-26) Glucose (70-105) mg/dL Calculated Osmolality (280-300) Calcium (8.6-10.3) mg/dL Magnesium (1.6-2.6) mg/dL Total Bilirubin (0.3-1.0) mg/dL Direct Bilirubin (0.0-0.2) mg/dL Indirect Bilirubin (0.0-1.2) mg/dL AST (13-39) Units/L ALT (7-52) Units/L Alkaline Phosphatase (34-104) Units/L Creatine Kinase (30-223) Units/L Troponin I (< 0.04) ng/mL B-Natriuretic Peptide (Less than 100) pg/mL Serum Total Protein (6.4-8.9) g/dL Albumin (3.5-5.7) g/dL Globulin (2.4-3.5) g/dL Albumin/Globulin Ratio (1.1-2.2) TSH (0.340-5.600) mcIU/mL Free T4 (0.70-2.00) ng/dl Free T3 (2.50-3.90) pg/mL Total T3 (0.87-1.78) ng/mL Random Cortisol mcg/dl Urine Color Dark Yellow (Yellow) Urine Clarity Cloudy A (Clear) Urine pH 6.0 (5.0-8.0) pH Units Ur Specific [place] 1.026 H (1.010-1.025) Urine Protein 100 H (Neg-Trace) mg/dL Urine Glucose (UA) Normal (Normal) mg/dL Urine Ketones Trace H (Negative) mg/dL Urine Blood Large H (Negative) Urine Nitrite Negative (Negative) Urine Bilirubin Moderate H (Negative) Urine Urobilinogen Normal (Normal) mg/dL Ur Leukocyte Esterase Moderate H (Negative) Urine Microscopic RBC 5-15 H (0-3) per hpf Urine Microscopic WBC TNTC H (0-3) per hpf Ur Squamous Epith Cells Many H (None-Few) per lpf Urine Bacteria Many H (None-Few) per hpf Hyaline Casts Test Not Performed Urine Yeast Test Not Performed Urine Test Negative (Negative) Salicylates (15.0-30.0) mg/dL Urine Opiates Screen Negative (Jdoeiu=334) ng/mL Acetaminophen (10-20) mcg/mL Ur Barbiturates Screen Negative (Jmvwcp=492) ng/mL Ur Phencyclidine Scrn Negative (Cutoff=25) ng/mL Ur Amphetamines Screen Positive H (Ktqezr=9833) ng/mL U Benzodiazepines Scrn Negative (Jbkhkn=550) ng/mL Urine Cocaine Screen Negative (Cutoff= 300) ng/mL U Marijuana (THC) Screen Positive H (Cutoff = 50) ng/mL Ur Drug Screen Interp See Below Ethyl Alcohol (Less than 10) mg/dL 12/30/17 12/30/17 12/30/17 Range/Units 11:39 11:39 11:39 WBC 9.8 (4.3-11.1) K/mcL RBC 4.74 (3.82-4.97) M/mcL Hgb 14.1 (11.5-15.4) g/dL Hct 40.8 (35.3-44.9) % MCV 86.1 (83.0-100.0) fL MCH 29.7 (28.0-33.3) pg MCHC 34.6 (31.6-35.5) g/dL RDW 13.1 (11.5-14.5) % Plt Count 159 (140-400) K/mcL MPV 10.6 (9.4-12.4) fL Immature Gran % 0.4 (0-4) % Seg Neutrophils % 81.5 % Lymphocytes % 12.4 % Monocytes % 5.4 % Eosinophils % 0.0 % Basophils % 0.3 % Neutrophils # 7.9 (1.6-8.9) K/mcL Lymphocytes # 1.2 (0.6-4.6) K/mcL Monocytes # 0.5 (0.0-1.3) K/mcL Eosinophils # 0.0 (0.0-0.6) K/mcL Basophils # 0.0 (0.0-0.2) K/mcL Sodium 138 (136-145) mEq/L Potassium 3.9 (3.5-5.1) mEq/L Chloride 104 (98-107) mEq/L Carbon Dioxide 23 (23-29) mEq/L BUN 10 (6-20) mg/dL Creatinine 0.97 (0.60-1.20) mg/dL Est GFR ( Amer) > 60 (> 60) Est GFR (Non-Af Amer) > 60 (> 60) BUN/Creatinine Ratio 10 (6-26) Glucose 89 (70-105) mg/dL Calculated Osmolality 285 (280-300) Calcium 9.0 (8.6-10.3) mg/dL Magnesium (1.6-2.6) mg/dL Total Bilirubin 0.3 (0.3-1.0) mg/dL Direct Bilirubin 0.1 (0.0-0.2) mg/dL Indirect Bilirubin 0.2 (0.0-1.2) mg/dL AST 22 (13-39) Units/L ALT 19 (7-52) Units/L Alkaline Phosphatase 95 (34-104) Units/L Creatine Kinase 254 H (30-223) Units/L Troponin I < 0.03 (< 0.04) ng/mL B-Natriuretic Peptide (Less than 100) pg/mL Serum Total Protein 6.9 (6.4-8.9) g/dL Albumin 4.0 (3.5-5.7) g/dL Globulin 2.9 (2.4-3.5) g/dL Albumin/Globulin Ratio 1.4 (1.1-2.2) TSH 0.303 L (0.340-5.600) mcIU/mL Free T4 1.26 (0.70-2.00) ng/dl Free T3 2.67 (2.50-3.90) pg/mL Total T3 1.12 (0.87-1.78) ng/mL Random Cortisol 10.5 mcg/dl Urine Color (Yellow) Urine Clarity (Clear) Urine pH (5.0-8.0) pH Units Ur Specific [place] (1.010-1.025) Urine Protein (Neg-Trace) mg/dL Urine Glucose (UA) (Normal) mg/dL Urine Ketones (Negative) mg/dL Urine Blood (Negative) Urine Nitrite (Negative) Urine Bilirubin (Negative) Urine Urobilinogen (Normal) mg/dL Ur Leukocyte Esterase (Negative) Urine Microscopic RBC (0-3) per hpf Urine Microscopic WBC (0-3) per hpf Ur Squamous Epith Cells (None-Few) per lpf Urine Bacteria (None-Few) per hpf Hyaline Casts Urine Yeast Urine Test (Negative) Salicylates < 2.5 L (15.0-30.0) mg/dL Urine Opiates Screen (Czsfof=452) ng/mL Acetaminophen < 10 L (10-20) mcg/mL Ur Barbiturates Screen (Qmlkre=987) ng/mL Ur Phencyclidine Scrn (Cutoff=25) ng/mL Ur Amphetamines Screen (Evkdze=0202) ng/mL U Benzodiazepines Scrn (Vjxanb=396) ng/mL Urine Cocaine Screen (Cutoff= 300) ng/mL U Marijuana (THC) Screen (Cutoff = 50) ng/mL Ur Drug Screen Interp Ethyl Alcohol < 10 (Less than 10) mg/dL 12/30/17 12/30/17 Range/Units 11:39 11:39 WBC (4.3-11.1) K/mcL RBC (3.82-4.97) M/mcL Hgb (11.5-15.4) g/dL Hct (35.3-44.9) % MCV (83.0-100.0) fL MCH (28.0-33.3) pg MCHC (31.6-35.5) g/dL RDW (11.5-14.5) % Plt Count (140-400) K/mcL MPV (9.4-12.4) fL Immature Gran % (0-4) % Seg Neutrophils % % Lymphocytes % % Monocytes % % Eosinophils % % Basophils % % Neutrophils # (1.6-8.9) K/mcL Lymphocytes # (0.6-4.6) K/mcL Monocytes # (0.0-1.3) K/mcL Eosinophils # (0.0-0.6) K/mcL Basophils # (0.0-0.2) K/mcL Sodium (136-145) mEq/L Potassium (3.5-5.1) mEq/L Chloride (98-107) mEq/L Carbon Dioxide (23-29) mEq/L BUN (6-20) mg/dL Creatinine (0.60-1.20) mg/dL Est GFR ( Amer) (> 60) Est GFR (Non-Af Amer) (> 60) BUN/Creatinine Ratio (6-26) Glucose (70-105) mg/dL Calculated Osmolality (280-300) Calcium (8.6-10.3) mg/dL Magnesium 1.9 (1.6-2.6) mg/dL Total Bilirubin (0.3-1.0) mg/dL Direct Bilirubin (0.0-0.2) mg/dL Indirect Bilirubin (0.0-1.2) mg/dL AST (13-39) Units/L ALT (7-52) Units/L Alkaline Phosphatase (34-104) Units/L Creatine Kinase (30-223) Units/L Troponin I (< 0.04) ng/mL B-Natriuretic Peptide 8 (Less than 100) pg/mL Serum Total Protein (6.4-8.9) g/dL Albumin (3.5-5.7) g/dL Globulin (2.4-3.5) g/dL Albumin/Globulin Ratio (1.1-2.2) TSH (0.340-5.600) mcIU/mL Free T4 (0.70-2.00) ng/dl Free T3 (2.50-3.90) pg/mL Total T3 (0.87-1.78) ng/mL Random Cortisol mcg/dl Urine Color (Yellow) Urine Clarity (Clear) Urine pH (5.0-8.0) pH Units Ur Specific [place] (1.010-1.025) Urine Protein (Neg-Trace) mg/dL Urine Glucose (UA) (Normal) mg/dL Urine Ketones (Negative) mg/dL Urine Blood (Negative) Urine Nitrite (Negative) Urine Bilirubin (Negative) Urine Urobilinogen (Normal) mg/dL Ur Leukocyte Esterase (Negative) Urine Microscopic RBC (0-3) per hpf Urine Microscopic WBC (0-3) per hpf Ur Squamous Epith Cells (None-Few) per lpf Urine Bacteria (None-Few) per hpf Hyaline Casts Urine Yeast Urine Test (Negative) Salicylates (15.0-30.0) mg/dL Urine Opiates Screen (Roffxd=157) ng/mL Acetaminophen (10-20) mcg/mL Ur Barbiturates Screen (Uyiwri=134) ng/mL Ur Phencyclidine Scrn (Cutoff=25) ng/mL Ur Amphetamines Screen (Vldlac=2599) ng/mL U Benzodiazepines Scrn (Rboyha=396) ng/mL Urine Cocaine Screen (Cutoff= 300) ng/mL U Marijuana (THC) Screen (Cutoff = 50) ng/mL Ur Drug Screen Interp Ethyl Alcohol (Less than 10) mg/dL Psychiatric Medical Clearance - Medical Clearance Checklist Medical History: No Social History Section defined Current Vitals: Last Vital Signs Temp 97.9 F 12/30/17 21:57 Pulse 106 12/30/17 21:57 Resp 22 12/30/17 21:57 BP 109/66 12/30/17 21:57 Pulse Ox 97 12/30/17 21:57 Psychiatric Lab Panel: Drug Levels and Toxicity 12/30/17 12/30/17 11:08 11:39 Urine Opiates Screen Negative Acetaminophen < 10 L Ur Barbiturates Screen Negative Ur Phencyclidine Scrn Negative Ur Amphetamines Screen Positive H U Benzodiazepines Scrn Negative Urine Cocaine Screen Negative U Marijuana (THC) Screen Positive H Ethyl Alcohol < 10 Abnormal Labs: Abnormal lab results D-Dimer 641 ng/mLFEU (0-500) H 12/30/17 17:11 Creatine Kinase 254 Units/L (30-223) H 11/11/18 11:39 TSH 0.303 mcIU/mL (0.340-5.600) L 12/30/17 11:39 Urine Clarity Cloudy (Clear) A 12/30/17 11:08 Ur Specific [place] 1.026 (1.010-1.025) H 12/30/17 11:08 Urine Protein 100 mg/dL (Neg-Trace) H 12/30/17 11:08 Urine Ketones Trace mg/dL (Negative) H 12/30/17 11:08 Urine Blood Large (Negative) H 12/30/17 11:08 Urine Bilirubin Moderate (Negative) H 12/30/17 11:08 Ur Leukocyte Esterase Moderate (Negative) H 12/30/17 11:08 Urine Microscopic RBC 5-15 per hpf (0-3) H 12/30/17 11:08 Urine Microscopic WBC TNTC per hpf (0-3) H 12/30/17 11:08 Ur Squamous Epith Cells Many per lpf (None-Few) H 12/30/17 11:08 Urine Bacteria Many per hpf (None-Few) H 12/30/17 11:08 Salicylates < 2.5 mg/dL (15.0-30.0) L 12/30/17 11:39 Acetaminophen < 10 mcg/mL (10-20) L 12/30/17 11:39 Ur Amphetamines Screen Positive ng/mL (Vzxepq=1413) H 12/30/17 11:08 U Marijuana (THC) Screen Positive ng/mL (Cutoff = 50) H 12/30/17 11:08 Statement of Medical Clearance: I have evaluated the patient, reviewed diagnostic information, and certify that the patient's medical condition is sufficiently stable that transfer to the psychiatric unit does not pose a significant risk of deterioration.
[2017-12-30] MEDS ORDERED: Ibuprofen 600 MG TABLET PO ONE (13:54)
[2017-12-30] MEDS ORDERED: *HR* LORazepam 2 MG/ML VIAL IVP STA (15:20)
[2017-12-30 16:21] LABS: Triiodothyronine (T3) Free 2.67 pg/mL (2.50-3.90)
[2017-12-30 16:25] LABS: Triiodothyronine (T3) Total 1.12 ng/mL (0.87-1.78)
--- NOTE | 2017-12-30 17:42 | Internal Med History&Physical ---
<RichardSaPepe - Last Filed: 12/30/17 19:50> Date of Encounter: 12/30/17 Time of Encounter: 18:30 Internal Medicine - H&P: HPI Chief complaint: Post - psychosis History of present illness: Ms. Ocampo is a 22 year old female with a past medical history of anticipatory anxiety (diagnosed when she was in high school) who presents to the ED because of symptoms of depression. Patient delivered her first child on November via vaginal delivery without any complications preeclampsi or gestational diabetes. Since then she has been having 'feelings of depression', and endorses that she feels she is 'not good enough' to care for her son. Patient also endorses a chronic episodes of insomnia to the point where she barely sleeps for 20 minutes and then wakes up. He also endorses episodes of visual hallucination . She narrates an incident of her mother and other family member along with a friend sitting in her living room one evening, and had left her house soon after. However, she continued to see them sitting on her couch even after they were gone. She endorses that she had never had a hallucination episodes before. She endorses suicidal ideation and endorsed that she had the thought of searching her medicine cabinet, find the bottle of Tylenol and overdose on it , although she hasn't acted upon her thought. Patient's endorses that her is a good dad and takes care of the son really well, endorses no history of any domestic violence and that having the baby was a mutual decision. She denies any family history of any depression. She saw her nurse practitioner over 2 weeks ago her anxiety and was prescribed Atarax. Patient has been taking 1 pill every morning. Also endorses that she h as been not liking the taste of water ever since she gave to her child and has been dehydrated. She also drinks reasonable amount of caffeine. She endorses a history of urinary tract infections the last one being in her second trimester. Patient denies any systemic signs like fever, shortness of breath, chest pain, vomiting nausea. Initial workup in the ED was positive for amphetamines and marijuana in her UA , moderate leukocyte esterase, RBC (5-15) and no white blood cells Her TSH was low (0.303) . She also had an elevated d-dimer of 641, with elevated CK (254). She was admitted to the hospital for further management. Past Med Surg Social Fam HX - Past Medical History Medical history: no medical history Psychiatric history: anxiety - Past Surgical History Surgical History: no surgical history - Social History Smoking Status: Current every day smoker Smokeless Tobacco Status: No Alcohol use: none Drug use: none - Family History Mother Family Member Ethnicity: Non- Living Status: Still Living Hx Family Cardiac Disorders: No Hx Family Respiratory Disorders: No Hx Family Cancer: No Hx Family GI Disorders: No Hx Family Endocrine Disorder: No Hx Family Neuromuscular Disorders: No Hx Family Neurologic Disorders: No Hx Family HEENT Disorders: No Hx Family Autoimmune Disorders: No Internal Medicine - H&P: Meds RX: Acetaminophen [Tylenol] 650 mg PO Q6HR PRN tablet 11/29/17 [Rx] RX: Citalopram Hydrobromide [Citalopram HBr] 20 mg PO DAILY 12/30/17 [History] RX: HydrOXYzine 10 mg PO Q6H PRN 12/30/17 [History] RX: Sulfamethoxazole/Trimeth DS [Bactrim Ds] 1 each PO DAILY #6 tablet 12/31/17 [Rx] Allergy/AdvReac Type Severity Reaction Status Date / Time Cefadroxil [From [facility]] Allergy Hives Verified 12/30/17 11:02 All Systems PM: A 10-system review of systems was performed and is negative for pertinent f indings except as documented above in the HPI. - Constitutional Vitals: Temp Pulse Resp BP Pulse Ox 99.3 F 114 18 131/69 98 12/30/17 17:17 12/30/17 17:17 12/30/17 17:17 12/30/17 17:17 12/30/17 17:17 Exam: below - Head Head exam: Present: atraumatic, normal inspection, normocephalic - Respiratory Respiratory exam: Present: CTAB (no Rales, rhonchi or wheezing.) - Cardiovascular Cardiovascular exam: Present: tachycardia (no gallops murmurs or rubs) - GI/Abdominal GI/Abdominal exam: Present: soft (Nontender, nondistended, no guarding) - Neurological Exam Neurological exam: Present: CN II-XII intact, oriented X3, no focal deficits - Psychiatric Psychiatric exam: Present: anxious, suicidal ideation (suicidal ideation) Internal Med - H&P Results - Labs CBC & Chem 7: 12/30/17 11:39 12/30/17 11:39 Labs: Short CBC 12/30/17 Range/Units 11:39 WBC 9.8 (4.3-11.1) K/mcL Hgb 14.1 (11.5-15.4) g/dL Hct 40.8 (35.3-44.9) % Plt Count 159 (140-400) K/mcL Neutrophils # 7.9 (1.6-8.9) K/mcL BMP 12/30/17 11:39 Sodium 138 Potassium 3.9 Chloride 104 Carbon Dioxide 23 BUN 10 Creatinine 0.97 Glucose 89 Calcium 9.0 Cardiac Enzymes 12/30/17 Range/Units 11:39 Troponin I < 0.03 (< 0.04) ng/mL Liver Function 12/30/17 Range/Units 11:39 Total Bilirubin 0.3 (0.3-1.0) mg/dL Direct Bilirubin 0.1 (0.0-0.2) mg/dL AST 22 (13-39) Units/L ALT 19 (7-52) Units/L Alkaline Phosphatase 95 (34-104) Units/L Albumin 4.0 (3.5-5.7) g/dL Urine 12/30/17 Range/Units 11:08 Urine Color Dark Yellow (Yellow) Urine Clarity Cloudy A (Clear) Urine pH 6.0 (5.0-8.0) pH Units Ur Specific [place] 1.026 H (1.010-1.025) Urine Protein 100 H (Neg-Trace) mg/dL Urine Glucose (UA) Normal (Normal) mg/dL - Impressions ITS Impressions Chest X-Ray 12/30/17 11:27 IMPRESSION: Normal chest radiographs D/ / Augusto Lugo MD / Augusto Lugo MD Interpreting Provider: Augusto Lugo MD - Assessment and plan (1) psychosis Current Visit: Yes Status: Acute Assessment and plan: - likely due to delivering at a young age. No evidence of any domestic violence, no Family Hx of post depression/psychosis. - patient endorsing periodic episodes of visual hallucination , not actively hallucinating at the moment. also endorses suicidal ideation - Suicide precautions, Sitter in room, Haldol PRN, Psych consulted,pink slipped in the ED (2) UTI (urinary tract infection) Current Visit: Yes Status: Acute Assessment and plan: - She has a past medical history of UTI. Last UTI was in her second trimester . - on UA she had moderate leukocyte esterase, with no WBC, RBC 5-15. - She was given 1 gram Rocephin in the ED. On physical exam patient endorses no suprapubic tenderness, no dysuria. - Scheduled 500mg PO Levaquin. Continue to monitor. Qualifiers: Urinary tract infection type: acute cystitis Hematuria presence: with hematuria Qualified Code(s): N30.01 - Acute cystitis with hematuria (3) Anxiety Current Visit: Yes Status: Acute Assessment and plan: - Has a history of anticipatory anxiety since her high school,was recently prescribed Atarax for her anxiety 2 weeks ago by her [employer] . - Given 1mg Ativan in the ED, currently somnolent . - Ativan 1mg PRN (4) Elevated creatine kinase Current Visit: Yes Status: Acute Assessment and plan: - Patient had an elevated CK of 254 and admission. No evidence of any falls. Highly unlikely this is secondary to her UTI because patient had no evidence of leukocytosis on admission. - likely due to amphetamine use in the past. Tox screen was positive for amphetamines. - Continue to monitor. Repeat CK pending. Gentle hydration if CK continues to increase. (5) DVT prophylaxis Current Visit: Yes Status: Acute Assessment and plan: SCDs - Time Spent With Patient Total time spent is greater than 50% in coordination of care (as documented) at patient's floor/unit and/or counseling patient: <Kenneth Ramostyrone Ortega - Last Filed: 12/31/17 20:04> Date of Encounter: 12/30/17 Internal Medicine - H&P: HPI History of present illness: Ms. Ocampo is a 22 year old female All Systems PM: A 10-system review of systems was performed and is negative for pertinent findings except as documented above in the HPI. - Constitutional Vitals: Temp Pulse Resp BP Pulse Ox 98 F 107 16 126/88 99 12/31/17 19:06 12/31/17 19:06 12/31/17 19:06 12/31/17 19:06 12/31/17 19:06 Internal Med - H&P Results - Labs CBC & Chem 7: 12/31/17 03:21 12/30/17 11:39 Labs: Short CBC 12/31/17 Range/Units 03:21 WBC 10.0 (4.3-11.1) K/mcL Hgb 13.6 (11.5-15.4) g/dL Hct 40.1 (35.3-44.9) % Plt Count 147 (140-400) K/mcL Neutrophils # 8.7 (1.6-8.9) K/mcL - Impressions ITS Impressions Chest X-Ray 12/30/17 11:27 IMPRESSION: Normal chest radiographs D/ / Augusto Lugo MD / Augusto Lugo MD Interpreting Provider: Augusto Lugo MD - Assessment and plan (1) UTI (urinary tract infection) Current Visit: Yes Status: Acute Qualifiers: Urinary tract infection type: acute cystitis Hematuria presence: with hematuria Qualified Code(s): N30.01 - Acute cystitis with hematuria (2) psychosis Current Visit: Yes Status: Acute (3) Anxiety Current Visit: Yes Status: Acute (4) Elevated creatine kinase Current Visit: Yes Status: Resolved (5) Tobacco abuse Current Visit: Yes Status: Chronic - Time Spent With Patient Total time spent is greater than 50% in coordination of care (as documented) at patient's floor/unit and/or counseling patient: - Attending Attestation I examined this patient and my medical decision-making was reviewed with the Resident Physician on 12/30/17. I agree with the documented findings, disposition and treatment plan as described except to the extent set forth below. Please see event note of this date.
[2017-12-30] MEDS ORDERED: Haloperidol Lactate 5 MG/ML VIAL IVP PRN (18:33)
[2017-12-30] MEDS ORDERED: *HR* LORazepam 1 MG TABLET PO PRN (18:34)
--- NOTE | 2017-12-30 19:02 | Event Note ---
Date of Encounter: 12/30/17 Time of Encounter: 18:15 I examined this patient and my medical decision-making was reviewed with the Resident Physician on 12/30/17. I agree with the documented findings, disposition and treatment plan as described except to the extent set forth below. Please see H&P for further information Ms Ocampo is a 22 y/o female who is 6 weeks post . She presented to ED with tachycardia and suicidal ideation. She is also having some visual hallucinations. She has been placed in observation for further monitoring. Exam Alert Somnolent from Ativan - unable to get much history from patient. Chart and other documents reviewed. Mucus membranes dry Heart reg and tachy No wheeze abd soft No edema Moves all extremities. I/P 1. Post psychosis suspected - monitor. Strict sitter and suicide precautions. PRN meds. 2. Tachycardia - ? UTI versus other. UDS positive for amphetamines (pt denies). 3. Post D dimer elevated - pt . No hypoxia or chest pain. Further diagnoses and plan as per H&P.
[2017-12-30] MEDS: Acetaminophen 325 MG TABLET PO PRN (23:37)
[2017-12-31 04:41] LABS: Basophils % 0.3 %; Hematocrit 40.1 % (35.3-44.9); Hemoglobin 13.6 g/dL (11.5-15.4); Immature Granulocytes % 0.4 % (0-4); Lymphocytes # 0.8 K/mcL (0.6-4.6); Lymphocytes % 7.7 %; Mean Corpuscular HGB Conc 33.9 g/dL (31.6-35.5); Mean Corpuscular Hemoglobin 29.3 pg (28.0-33.3); Mean Corpuscular Volume 86.4 fL (83.0-100.0); Mean Platelet Volume 10.9 fL (9.4-12.4); Monocytes # 0.4 K/mcL (0.0-1.3); Monocytes % 4.2 %; Neutrophils # 8.7 K/mcL (1.6-8.9); Platelet Count 147 K/mcL (140-400); Red Blood Count 4.64 M/mcL (3.82-4.97); Red Cell Distribution Width 13.4 % (11.5-14.5); Segmented Neutrophils % 87.4 %
[2017-12-31] MEDS: Acetaminophen 325 MG TABLET PO PRN (05:33)
[2017-12-31] MEDS ORDERED: Ibuprofen 600 MG TABLET PO PRN (08:00)
[2017-12-31] MEDS ORDERED: levoFLOXacin 500 MG TABLET PO SCH (09:00)
[2017-12-31] MEDS ORDERED: Levofloxacin 250 MG/50 ML 250 MG/50 ML BAG IVPB SCH (09:00)
--- NOTE | 2017-12-31 09:34 | Internal Med Progress Note ---
<Gisella Nguyen - Last Filed: 12/31/17 15:34> Hospitalist Progress Note - Encounter Date of Encounter: 12/31/17 Time of Encounter: 08:45 - Subjective Interval History: Ms. Ocampo is a 22 yo F who presented to the ED on 12/30/17 with post- depression, visual and auditory hallucinations, tachycardia, and a UTI. D-dimer was 641 on 12/30 at 17:11. Temp nicolasa from yesterday evening to 100.6 this morning, then returned back down to 97.9 this afternoon. HR tachycardic last night and this morning. Back down to 94 this afternoon. RR fluctuated from 18-22 last night and this morning. This afternoon, down to 14. BP down to 100s-120s/60s-80 Nurse note from 22:13 12/30 stated that scratches/cut dean were noted on L arm. Patient admitted to causing them. Today, patient was sleeping with sitter outside when I entered the room. She stated that she has not had any hallucinations this morning, but experienced both visual and auditory hallucinations last night. She has been eating, though she states that she does not have much of an appetite. She has been able to sleep. She stated that her anxiety is better right now. She denied thoughts of self harm today. ROS: Fever. Hallucinations as mentioned above. All other systems negative. - Exam Vitals: Temp Pulse Resp BP Pulse Ox 100.3 F H 115 19 122/77 97 12/31/17 07:06 12/31/17 07:06 12/31/17 07:06 12/31/17 07:06 12/31/17 07:06 Exam: General: After awakening, was alert and in no acute distress. Head: atraumatic, normocephalic Eyes: pupils equal and round. Sclera non-icteric. Skin: Warm and clammy. ~1 cm scabbed lesion on posterior neck. Small area of erythema surrounding the lesion. Superficial scratches on anterior side of L lower arm. CV: tachycardic. RRR; no murmurs, gallops, or rubs. Normal S1 and S2. Resp: lungs CTA bilaterally. No wheezes, rhonchi, or rales. Abd: BS x2. Non-tender, no guarding. Extr: no edema. Scratches on L arm as noted above. No deformity of extremities. - Assessment and Plan (1) Hallucinations Current Visit: Yes Status: Acute Assessment and Plan: amphetamine use vs. psychosis vs. delirium 2/2 UTI Patient endorsed periodic episodes of visual and auditory hallucination for past 4 days. Not actively hallucinating at the moment. Previously endorsed suicidal ideation, denies it or thoughts of harming self today. Self-inflicted scratches on arm created last night. No Family Hx of post depression/psychosis Patient 4 weeks Patient admits to Adipex use until last . She flushed the rest of the pills down the toilet. - Suicide precautions, Sitter in room, Haldol PRN, Psych consulted, pink slipped in the ED (2) UTI (urinary tract infection) Current Visit: Yes Status: Acute Assessment and Plan: Past medical history of UTI. Last UTI was in her second trimester . On UA she had moderate leukocyte esterase, with no WBC, RBC 5-15. Patient denied hematuria today. - She was given 1 gram Rocephin in the ED. - Scheduled daily 500mg PO Levaquin. Continue to monitor. 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 Given 1mg Ativan in the ED. States that anxiety is better today. - Ativan 1mg PRN (4) Elevated creatine kinase Current Visit: Yes Status: Acute Assessment and Plan: Patient had an elevated CK of 254 on admission. No evidence of any falls. Highly unlikely this is secondary to her UTI because patient had no evidence of leukocytosis on admission. Possibly due to amphetamine use. Tox screen was positive for amphetamines. Creatine kinase down to 138 from 254 yesterday. - Continue to monitor. Repeat CK pending. Gentle hydration if CK continues to increase. DVT Prophylaxis: SCDs - Time Spent with Patient Total time spent is greater than 50% in coordination of care (as documented) at patient's floor/unit and/or counseling patient: less than 15 minutes Internal Medicine: Result - Labs CBC & Chem 7: 12/31/17 03:21 12/30/17 11:39 Labs: Short CBC 12/30/17 12/31/17 Range/Units 11:39 03:21 WBC 9.8 10.0 (4.3-11.1) K/mcL Hgb 14.1 13.6 (11.5-15.4) g/dL Hct 40.8 40.1 (35.3-44.9) % Plt Count 159 147 (140-400) K/mcL Neutrophils # 7.9 8.7 (1.6-8.9) K/mcL BMP 12/30/17 11:39 Sodium 138 Potassium 3.9 Chloride 104 Carbon Dioxide 23 BUN 10 Creatinine 0.97 Glucose 89 Calcium 9.0 Cardiac Enzymes 12/30/17 Range/Units 11:39 Troponin I < 0.03 (< 0.04) ng/mL Liver Function 12/30/17 Range/Units 11:39 Total Bilirubin 0.3 (0.3-1.0) mg/dL Direct Bilirubin 0.1 (0.0-0.2) mg/dL AST 22 (13-39) Units/L ALT 19 (7-52) Units/L Alkaline Phosphatase 95 (34-104) Units/L Albumin 4.0 (3.5-5.7) g/dL Urine 12/30/17 Range/Units 11:08 Urine Color Dark Yellow (Yellow) Urine Clarity Cloudy A (Clear) Urine pH 6.0 (5.0-8.0) pH Units Ur Specific [place] 1.026 H (1.010-1.025) Urine Protein 100 H (Neg-Trace) mg/dL Urine Glucose (UA) Normal (Normal) mg/dL - ABG Interpretation ABG results: PT/INR, D-dimer D-Dimer 641 ng/mLFEU (0-500) H 12/30/17 17:11 - Impressions Impressions Chest X-Ray 12/30/17 11:27 IMPRESSION: Normal chest radiographs D/ / Augusto Lugo MD / Augusto Lugo MD Interpreting Provider: Augusto Lugo MD Consult Discharge Plan - Plan Referrals: NONE,PCP [Primary Care Provider] - <Vahe Ramos - Last Filed: 12/31/17 18:39> Hospitalist Progress Note - Encounter Date of Encounter: 12/31/17 - Exam Vitals: Temp Pulse Resp BP Pulse Ox 97.6 F 79 18 118/85 98 12/31/17 16:45 12/31/17 16:45 12/31/17 16:45 12/31/17 16:45 12/31/17 16:45 - Assessment and Plan (1) UTI (urinary tract infection) Current Visit: Yes Status: Acute (2) psychosis Current Visit: Yes Status: Acute (3) Anxiety Current Visit: Yes Status: Acute (4) DVT prophylaxis Current Visit: Yes Status: Acute (5) Elevated creatine kinase Current Visit: Yes Status: Resolved (6) Tobacco abuse Current Visit: Yes Status: Chronic - Time Spent with Patient Total time spent is greater than 50% in coordination of care (as documented) at patient's floor/unit and/or counseling patient: Internal Medicine: Result - Labs CBC & Chem 7: 12/31/17 03:21 12/30/17 11:39 Labs: Short CBC 12/31/17 Range/Units 03:21 WBC 10.0 (4.3-11.1) K/mcL Hgb 13.6 (11.5-15.4) g/dL Hct 40.1 (35.3-44.9) % Plt Count 147 (140-400) K/mcL Neutrophils # 8.7 (1.6-8.9) K/mcL - ABG Interpretation ABG results: PT/INR, D-dimer D-Dimer 641 ng/mLFEU (0-500) H 12/30/17 17:11 - Attending Attestation The history, physical exam, and medical decision making was performed by the medical student either while I was physically present and actively involved or I personally re-performed the exam and medical decision making. I have verified the accuracy of the medical student's documentation with regards to the history, physical exam findings, and medical decision making on 12/31/17. Ms Ocampo is currently in observation for tachycardia and concern for depression and suicidal ideation. She remains moderate to high risk. Ms Ocampo is resting. Mom is at bedside. She denies CP or SOB at this time. She is awaiting psych eval. Heart rate still elevated. Exam alert Comfortable Mucus membranes dry Heart tachy and regular No wheeze abd soft and nontender No edema No confusion Moves all extremities I/P 1. Tachycardia due to Adipex/amphetamine 2. Suicidal ideation - psych to see 3. 4. UTI - on abx. Further diagnoses and plan as above. <Gisella Nguyen - Last Filed: 12/31/17 15:34> (2) UTI (urinary tract infection) Qualifiers: Urinary tract infection type: acute cystitis Hematuria presence: with hematuria Qualified Code(s): N30.01 - Acute cystitis with hematuria <Vahe Ramos - Last Filed: 12/31/17 18:39> (1) UTI (urinary tract infection) Qualifiers: Urinary tract infection type: acute cystitis Hematuria presence: with hematuria Qualified Code(s): N30.01 - Acute cystitis with hematuria
[2017-12-31 16:34] LABS: Adenovirus Not Detected (Not Detect); Bordetella Pertussis Not Detected (Not Detect); Chlamydophila pneumoniae Not Detected (Not Detect); Coronavirus 229E Not Detected (Not Detect); Coronavirus HKU1 Not Detected (Not Detect); Coronavirus NL63 Not Detected (Not Detect); Coronavirus OC43 Not Detected (Not Detect); Human Metapneumovirus Not Detected (Not Detect); Human Rhinovirus/Enterovirus Not Detected (Not Detect); Influenza A Subtype 2009 H1 Not Detected (Not Detect); Influenza A Untypeable Not Detected (Not Detect); Influenza B Not Detected (Not Detect); Mycoplasma pneumoniae Not Detected (Not Detect); Parainfluenza Virus 1 Not Detected (Not Detect); Parainfluenza Virus 2 Not Detected (Not Detect); Parainfluenza Virus 3 Not Detected (Not Detect); Parainfluenza Virus 4 Not Detected (Not Detect); Respiratory Syncytial Virus Not Detected (Not Detect)
--- NOTE | 2017-12-31 18:15 | Consult Note ---
Date of Encounter: 12/31/17 Time of Encounter: 18:00 Assessment & Recommendation (1) Major depressive disorder, single episode, severe without psychotic features Current visit: Yes Status: Acute (2) Post depression Current visit: Yes Status: Acute History of Present Illness Patient: new to practice Requesting Physician: Vahe Ramos DO Reason for consult: patient with depression History of present illness: Ms. Ocampo is a 22 year old female Chief complaint: I slept well and I am doing better now. History of present illness. The patient was in her usual state of health and mood. She delivered a healthy baby boy by vaginal delivery on November 282017. The patient was able to return home with her baby boy 11/29/2012. The patient's mother others became concerned as the patient was exhibiting unusual behavior. This included depression. The patient was placed on citalopram by Dionna Jose NP. The patient had been placed on citalopram 20 mg every morning. The patient reports that she began talking to people that were not there and her boyfriend became concerned. Her mother became concerned and had her come to the hospital. In addition the patient had cut her scratched her left wrist. On interview today the patient reports that she still has sadness and crying but her concentration is good and her appetite is improved her ability to take care of her son is good and he tends to sleep through the night. She was tearful in the interview but denied suicidal ideation and she denied psychosis. But she noted that she did have a spell of this. When asked about the amphetamine the urine she said that she was taking Adipex. When asked about marijuana use she said she did use marijuana. I also interviewed the family members and a later time. 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 In addition her boyfriend is on FMLA from work. The patient does not want to come to the [facility] and does not exhibit significant symptoms of depression or psych osis. The patient been tolerating citalopram. The patient has no prior psychiatric history she has no alcohol or drug abuse problem. The patient's family history is significant for father with alcohol problem and some member of his family such as a paternal aunt needing psychiatric treatment but is otherwise negative. 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 She is scheduled to go back January 10 but could asked to extend. She was told to come back and see Dionna in 2 weeks but can call sooner.. CC: Vahe Ramos, DO Past Med Surg Social Fam HX - Past Medical History Source: patient Medical history: no medical history - Past Psychiatric History Psychiatric history: Reports: no psych history Family psychiatric history: Yes Family History of Suicide: None - Past Surgical History Surgical History: no surgical history - Social History Smoking Status: Current every day smoker Smokeless Tobacco Status: No Alcohol use: none Drug use: none Occupational status: employed Current living situation: Home - Independent Recent Out of Country Travel Within the Last 8 Weeks: Yes Exposure or Possible Exposure to Illness During Travel: Yes - Family History Mother Family Member Ethnicity: Non- Living Status: Still Living Hx Family Cardiac Disorders: No Hx Family Respiratory Disorders: No Hx Family Cancer: No Hx Family GI Disorders: No Hx Family Endocrine Disorder: No Hx Family Neuromuscular Disorders: No Hx Family Neurologic Disorders: No Hx Family HEENT Disorders: No Hx Family Autoimmune Disorders: No Medications & Allergies Acetaminophen [Tylenol] 650 mg PO Q6HR PRN tablet 11/29/17 [Rx] Citalopram Hydrobromide [Citalopram HBr] 20 mg PO DAILY 12/30/17 [History] HydrOXYzine 10 mg PO Q6H PRN 12/30/17 [History] Allergy/AdvReac Type Severity Reaction Status Date / Time Cefadroxil [From [facility] [place]] Allergy Hives Verified 12/30/17 11:02 Review of Systems Psychiatric: Reports: abnormal sleep pattern, suicidal ideation, auditory hallucinations, mood swings Psychiatry Exam - Constitutional Vitals: Temp Pulse Resp BP Pulse Ox 97.6 F 79 18 118/85 98 12/31/17 16:45 12/31/17 16:45 12/31/17 16:45 12/31/17 16:45 12/31/17 16:45 General appearance: age & developmentally appropriate, well-groomed, well- nourished - Musculoskeletal Gait: normal Station: relaxed Strength & Tone: normal for patient - Psychiatric Patient Orientation: Yes Person, Yes Time, Yes Place Level of alertness: Alert Behavior: calm, cooperative, tearful Psychomotor activity: Normal Eye Contact: Maintains Eye Contact Mood Description: Depressed Affect description: congruent with mood, full range, tearful Speech Volume: Soft/Quiet Speech pattern: normal rate, normal rhythm, normal tone, fluent, spontaneous Language & Vocabulary: consistent with education Thought Process: Linear, Goal Oriented Thought Content: No Suicidal ideation, No Homicidal ideation, No Overt delusions Perceptual Disturbances: No Auditory hallucinations, No Visual hallucinations Attention Span Ability: Capable of Focused Attention Memory Description: Grossly Intact Patient Reliability: Reliable Historian Fund of knowledge: Yes abstraction ability, Yes aware of current events Intelligence Estimate: Above [place] Judgment: Good Insight: Full Results - Labs Labs: Laboratory Last Values WBC 10.0 K/mcL (4.3-11.1) 12/31/17 03:21 RBC 4.64 M/mcL (3.82-4.97) 12/31/17 03:21 Hgb 13.6 g/dL (11.5-15.4) 12/31/17 03:21 Hct 40.1 % (35.3-44.9) 12/31/17 03:21 MCV 86.4 fL (83.0-100.0) 12/31/17 03:21 MCH 29.3 pg (28.0-33.3) 12/31/17 03:21 MCHC 33.9 g/dL (31.6-35.5) 12/31/17 03:21 RDW 13.4 % (11.5-14.5) 12/31/17 03:21 Plt Count 147 K/mcL (140-400) 12/31/17 03:21 MPV 10.9 fL (9.4-12.4) 12/31/17 03:21 Immature Gran % 0.4 % (0-4) 12/31/17 03:21 Seg Neutrophils % 87.4 % 12/31/17 03:21 Lymphocytes % 7.7 % 12/31/17 03:21 Monocytes % 4.2 % 12/31/17 03:21 Eosinophils % 0.0 % 12/31/17 03:21 Basophils % 0.3 % 12/31/17 03:21 Neutrophils # 8.7 K/mcL (1.6-8.9) 12/31/17 03:21 Lymphocytes # 0.8 K/mcL (0.6-4.6) 12/31/17 03:21 Monocytes # 0.4 K/mcL (0.0-1.3) 12/31/17 03:21 Eosinophils # 0.0 K/mcL (0.0-0.6) 12/31/17 03:21 Basophils # 0.0 K/mcL (0.0-0.2) 12/31/17 03:21 D-Dimer 641 ng/mLFEU (0-500) H 12/30/17 17:11 Sodium 138 mEq/L (136-145) 12/30/17 11:39 Potassium 3.9 mEq/L (3.5-5.1) 12/30/17 11:39 Chloride 104 mEq/L (98-107) 12/30/17 11:39 Carbon Dioxide 23 mEq/L (23-29) 12/30/17 11:39 BUN 10 mg/dL (6-20) 12/30/17 11:39 Creatinine 0.97 mg/dL (0.60-1.20) 12/30/17 11:39 Est GFR ( Amer) > 60 (> 60) 12/30/17 11:39 Est GFR (Non-Af Amer) > 60 (> 60) 12/30/17 11:39 BUN/Creatinine Ratio 10 (6-26) 12/30/17 11:39 Glucose 89 mg/dL (70-105) 12/30/17 11:39 Calculated Osmolality 285 (280-300) 12/30/17 11:39 Calcium 9.0 mg/dL (8.6-10.3) 12/30/17 11:39 Magnesium 1.9 mg/dL (1.6-2.6) 12/30/17 11:39 Total Bilirubin 0.3 mg/dL (0.3-1.0) 12/30/17 11:39 Direct Bilirubin 0.1 mg/dL (0.0-0.2) 12/30/17 11:39 Indirect Bilirubin 0.2 mg/dL (0.0-1.2) 12/30/17 11:39 AST 22 Units/L (13-39) 12/30/17 11:39 ALT 19 Units/L (7-52) 12/30/17 11:39 Alkaline Phosphatase 95 Units/L (34-104) 12/30/17 11:39 Creatine Kinase 138 Units/L (30-223) 12/31/17 03:21 Troponin I < 0.03 ng/mL (< 0.04) 12/30/17 11:39 B-Natriuretic Peptide 8 pg/mL (Less than 100) 12/30/17 11:39 Serum Total Protein 6.9 g/dL (6.4-8.9) 12/30/17 11:39 Albumin 4.0 g/dL (3.5-5.7) 12/30/17 11:39 Globulin 2.9 g/dL (2.4-3.5) 12/30/17 11:39 Albumin/Globulin Ratio 1.4 (1.1-2.2) 12/30/17 11:39 TSH 0.303 mcIU/mL (0.340-5.600) L 12/30/17 11:39 Free T4 1.26 ng/dl (0.70-2.00) 12/30/17 11:39 Free T3 2.67 pg/mL (2.50-3.90) 12/30/17 11:39 Total T3 1.12 ng/mL (0.87-1.78) 12/30/17 11:39 Random Cortisol 10.5 mcg/dl 12/30/17 11:39 Urine Color Dark Yellow (Yellow) 12/30/17 11:08 Urine Clarity Cloudy (Clear) A 12/30/17 11:08 Urine pH 6.0 pH Units (5.0-8.0) 12/30/17 11:08 Ur Specific [place] 1.026 (1.010-1.025) H 12/30/17 11:08 Urine Protein 100 mg/dL (Neg-Trace) H 12/30/17 11:08 Urine Glucose (UA) Normal mg/dL (Normal) 12/30/17 11:08 Urine Ketones Trace mg/dL (Negative) H 12/30/17 11:08 Urine Blood Large (Negative) H 12/30/17 11:08 Urine Nitrite Negative (Negative) 12/30/17 11:08 Urine Bilirubin Moderate (Negative) H 12/30/17 11:08 Urine Urobilinogen Normal mg/dL (Normal) 12/30/17 11:08 Ur Leukocyte Esterase Moderate (Negative) H 12/30/17 11:08 Urine Microscopic RBC 5-15 per hpf (0-3) H 12/30/17 11:08 Urine Microscopic WBC TNTC per hpf (0-3) H 12/30/17 11:08 Ur Squamous Epith Cells Many per lpf (None-Few) H 12/30/17 11:08 Urine Bacteria Many per hpf (None-Few) H 12/30/17 11:08 Hyaline Casts Test Not Performed 12/30/17 11:08 Urine Yeast Test Not Performed 12/30/17 11:08 Urine Test Negative (Negative) 12/30/17 11:08 Salicylates < 2.5 mg/dL (15.0-30.0) L 12/30/17 11:39 Urine Opiates Screen Negative ng/mL (Qdmxye=440) 12/30/17 11:08 Acetaminophen < 10 mcg/mL (10-20) L 12/30/17 11:39 Ur Barbiturates Screen Negative ng/mL (Eoxlpq=365) 12/30/17 11:08 Ur Phencyclidine Scrn Negative ng/mL (Cutoff=25) 12/30/17 11:08 Ur Amphetamines Screen Positive ng/mL (Ukbnzd=3721) H 12/30/17 11:08 U Benzodiazepines Scrn Negative ng/mL (Nldtyr=421) 12/30/17 11:08 Urine Cocaine Screen Negative ng/mL (Cutoff= 300) 12/30/17 11:08 U Marijuana (THC) Screen Positive ng/mL (Cutoff = 50) H 12/30/17 11:08 Ur Drug Screen Interp See Below 12/30/17 11:08 Ethyl Alcohol < 10 mg/dL (Less than 10) 12/30/17 11:39 Chlamy pneumoniae PCR Not Detected (Not Detect) 12/31/17 13:57 Adenovirus (PCR) Not Detected (Not Detect) 12/31/17 13:57 B. pertussis DNA (PCR) Not Detected (Not Detect) 12/31/17 13:57 B.parapertussis DNA PCR Not Detected (Not Detect) 12/31/17 13:57 Coronavirus OC43 (PCR) Not Detected (Not Detect) 12/31/17 13:57 Coronavirus HKU1 (PCR) Not Detected (Not Detect) 12/31/17 13:57 Coronavirus 229E (PCR) Not Detected (Not Detect) 12/31/17 13:57 Coronavirus NL63 (PCR) Not Detected (Not Detect) 12/31/17 13:57 Human Metapneumovir PCR Not Detected (Not Detect) 12/31/17 13:57 Influenza A (H1) PCR Not Detected (Not Detect) 12/31/17 13:57 Influ A (H1N1/09) PCR Not Detected (Not Detect) 12/31/17 13:57 Influenza A (H3) PCR Not Detected (Not Detect) 12/31/17 13:57 Influenza A Untype (PCR) Not Detected (Not Detect) 12/31/17 13:57 Influenza Type B (PCR) Not Detected (Not Detect) 12/31/17 13:57 M.pneumoniae DNA (PCR) Not Detected (Not Detect) 12/31/17 13:57 Parainfluenza 1 (PCR) Not Detected (Not Detect) 12/31/17 13:57 Parainfluenza 2 (PCR) Not Detected (Not Detect) 12/31/17 13:57 Parainfluenza 3 (PCR) Not Detected (Not Detect) 12/31/17 13:57 Parainfluenza 4 (PCR) Not Detected (Not Detect) 12/31/17 13:57 RSV (PCR) Not Detected (Not Detect) 12/31/17 13:57 Entero/Rhino (PCR) Not Detected (Not Detect) 12/31/17 13:57 Consult Discharge Plan - Plan Referrals: NONE,PCP [Primary Care Provider] -
--- NOTE | 2017-12-31 19:04 | Discharge Summary ---
- NOTES TO OUTPATIENT PROVIDER Notes to Outpatient Provider: Pt presented to ED with tachycardia and concern for depression. She was found to be positive for amphetamines and had been taking Adipex. She was seen by psychiatry and cleared for discharge with 24hour monitoring at home. Date of Encounter: 12/31/17 Time of Encounter: 19:25 - Discharge Diagnosis (1) UTI (urinary tract infection) Priority: Primary Status: Acute Qualifiers: Urinary tract infection type: acute cystitis Hematuria presence: with hematuria Qualified Code(s): N30.01 - Acute cystitis with hematuria (2) psychosis Priority: Secondary Status: Acute (3) Anxiety Priority: Secondary Status: Acute (4) Elevated creatine kinase Priority: Secondary Status: Resolved (5) Tobacco abuse Priority: Secondary Status: Chronic Hospital course: Ms. Ocampo is a 22 year old female with recent hx of depression on Celexa brought to ED with concern for suicidal ideation. She was evaluated and placed in observation. Ms Ocampo was placed in observation for tachycardia, UTI and concern for depression with suicidal ideation. She was found to be positive for amphetamines and had been taking Adipex. She was given some Ativan and slept overnight. Today she was seen by psychiatry and was cleared for discharge with monitoring by her family. Plan documented in psychiatry note. She is now afebrile and will be discharged home. Discharge discussed with: patient, family Time spent discussing smoking cessation with patient: 3 to 10 minutes - Time Spent with Patient Total time spent providing and/or coordinating discharge services: - Discharge Medications Prescriptions: Sulfamethoxazole/Trimeth DS [Bactrim Ds] 1 each PO DAILY #6 tablet Home Medications: Acetaminophen [Tylenol] 650 mg PO Q6HR PRN tablet 11/29/17 [Rx] Citalopram Hydrobromide [Citalopram HBr] 20 mg PO DAILY 12/30/17 [History] HydrOXYzine 10 mg PO Q6H PRN 12/30/17 [History] Sulfamethoxazole/Trimeth DS [Bactrim Ds] 1 each PO DAILY #6 tablet 12/31/17 [Rx] Allergies/Adverse Reactions: Allergy/AdvReac Type Severity Reaction Status Date / Time [place] [facility] [place]ergy Hives Verified 12/30/17 11:02 Date of admission: 12/30/17 16:58 Primary care physician: PCP NONE Consults: 12/30/17 18:50 Consult to Psychiatry [CONS] Routine Consulting Provider: Psychiatry Alison Reason consult: Psychosis Discharging clinician: Vahe Ramos (s) Anticipated date of discharge: 12/31/17 - Constitutional Vitals: Temp Pulse Resp BP Pulse Ox 97.6 F 79 18 118/85 98 12/31/17 16:45 12/31/17 16:45 12/31/17 16:45 12/31/17 16:45 12/31/17 16:45 General appearance: Present: A&O X 3, pleasant, answers questions appropriately Exam: See below - Head Head exam: Present: normocephalic - Eye Eye exam: Present: EOMI, conjuntiva pink - ENT ENT exam: Present: normal exam - Respiratory Respiratory exam: Present: CTAB. Absent: rales, rhonchi, wheezes - Cardiovascular Cardiovascular exam: Present: RRR. Absent: tachycardia - GI/Abdominal GI/Abdominal exam: Present: soft. Absent: tenderness - Extremities Exam Extremities exam: Present: warm. Absent: tenderness - Neurological Exam Neurological exam: Present: alert, oriented X3 - Skin Skin exam: Present: dry, warm - Patient Status Disposition: Home, Self-Care Condition: Good Functional capacity at discharge: independent ambulation Overall status at discharge: patient is progressing back to baseline - Discharge Instructions Instructions: Sulfamethoxazole/Trimethoprim (By mouth), Depression (GEN), Depression (DC), Depression (GEN) Follow Up With: NONE,PCP [Primary Care Provider] - - Diet and Activity Activity: increase activity as tolerated Diet: advance to your usual diet
[2017-12-31 19:06] VITALS: BP 126/88
[2018-01-01] MEDS ORDERED: Sulfamethoxazole/Trimeth DS 1 EACH TABLET PO SCH (09:00)
--- NOTE | 2018-01-01 19:58 | Electrocardiograph Report ---
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
== END 2017-12-31 19:40 | disposition home or self-care (01) ==
LOC: EMEROOARM 10:54 → 3BNU 10:54 → SUATTDRO 16:58 → 3BNU 18:15
PROVIDERS: ADMIT Internal Medicine; ATTEND Internal Medicine